=== PATIENT | male | born 1955 | race Caucasian/White ===

== ENCOUNTER 2017-06-16 12:45 | Emergency (ER) | payer OTHER ==
[2017-06-16 12:48] VITALS: BP 145/89; BMI 35.9
[2017-06-16] MEDS ORDERED: LR 1000 ML IV 1,000 ML IV ONE ×2 (12:55→13:09)
[2017-06-16] MEDS ORDERED: MORPHINE SULFATE INJ 2 MG INJ IVP ONE ×2 (12:55→13:27)
[2017-06-16] MEDS ORDERED: ZOFRAN INJ 4 MG VIAL IVP ONE (12:55)
--- NOTE | 2017-06-16 12:55 | DR.ABDMALE ---
HPI - Time seen Time seen: 12:50 - PCP Primary Care Physician: ZEESHAN - HPI comment HPI Comment: Patient admits to nausea and vomiting onset yesterday got worse today. Abdominal pain LLQ somewhat xiphoid. The emesis was bile tinged. Denies history of cardiopulmonary disease. Admits to DM and HTN. - Complaint Chief Complaint:: PT. C/O SEVERE ABDOMINAL PAIN WHICH BEGAN YESTERDAY AND WORSENED. PT. ALSO C/O N/V. PT. HAS VOMITED 3 TIMES SINCE ONSET. PT. SAYS RIDING IN A CAR MAKES THE PAIN WORSE. - Mode of arrival Mode of Arrival: Wheelchair - Timing Onset of Chief Complaint: 06/15/17 PMH - PMH Past Medical History: Yes Past Medical History: Diabetes, Hypertension Past Surgical History: Yes Surgical History: Other Past Surgical History Comment: NASAL SEPTAL DEVIATION, CLEFT PALATE - Family History History of Family Medical Conditions: No - Social History Does patient currently use any type of tobacco product: No Have you used tobacco products in the last 12 months: No Type of Tobacco Use: None Alcohol Use: None Do you use any recreational Drugs:: No Lives With: Spouse Lives Where: Home - infectious screening In the last 2 months have you had wt loss of >10#?: NO Have you had fever, night sweats or hemotysis?: No Have you traveled outside the country in the last 6 months?: No Isolation: Standard ROS - Review of Systems Eyes: No Symptoms Reported ENTM: No Symptoms Reported Respiratoy: No Symptoms Reported Cardiovascular: No Symptoms Reported Gastrointestinal/Abdominal: See HPI, Abdominal Pain, Nausea, Vomiting Genitourinary: No Symptoms Reported Neurological: No Symptoms Reported Musculoskeletal: No Symptoms Reported Integumentary: No Symptoms Reported Hematologic/Lymphatic: No Symptoms Reported Endocrine: No Symptoms Reported Psychiatric: No Symptoms Reported All Other Systems: Reviewed and Negative PE - Vital Signs Vital Signs: Temp Pulse Resp BP Pulse Ox 06/16/17 12:46 97.1 F L 83 22 145/89 98 - General Limitations: No Limitations General Appearance: Alert, Anxious - Head Head Exam: Normal Inspection, Atraumatic - Eyes Eye exam: Normal Appearance, PERRL, EOMI - ENT ENT Exam: Normal Exam - Neck Neck Exam: Normal Inspection, Full ROM - Chest Chest Inspection: Normal Inspection, Symmetric Chest Wall Rise - Respiratory Respiratory Exam: Normal Lung Sounds Bilat Respiratory Exam: Bilateral Clear to Auscultation - Cardiovascular Cardiovascular Exam: Regular Rate, Normal Rhythm - Abdominal Exam Abdominal Exam: Normal Inspection Abdominal Tenderness: LUQ, Epigastrium, Severe - Rectal Rectal Exam: Deferred - Back Back Exam: Normal Inspection - Extremeties Extremities Exam: Normal Inspection, Full ROM - Exam: Male: Deferred - Neurologic Neurological Exam: Alert, Oriented X3, CN II-XII Intact - Psychiatric Psychiatric Exam: Anxious - Skin Skin Exam: Warm, Dry, Intact Course - Reevaluation 1st: Improved ROR - Labs Reviewed Laboratory Results Reviewed?: Yes (H Pylori) Result Diagrams: 06/16/17 13:00 06/16/17 13:00 Laboratory: WBC 8.6 X10^3/uL (3.6-10.0) 06/16/17 13:00 RBC 5.22 X10^6/uL (4.7-6.0) 06/16/17 13:00 Hgb 15.3 g/dL (13.5-18.0) 06/16/17 13:00 Hct 42.8 % (42.0-54.0) 06/16/17 13:00 MCV 82.0 fL (80.0-100.0) 06/16/17 13:00 MCH 29.3 pg (27.0-34.0) 06/16/17 13:00 MCHC 35.7 g/dL (33.0-35.0) H 06/16/17 13:00 RDW 13.3 % (11.6-16.5) 06/16/17 13:00 Plt Count 251 X10^3/uL (150.0-450.0) 06/16/17 13:00 MPV 6.8 fL (7.4-11.0) L 06/16/17 13:00 Neut % (Auto) 73.2 % (42.0-75.0) 06/16/17 13:00 Lymph % (Auto) 18.8 % (21.0-51.0) L 06/16/17 13:00 [place] % (Auto) 5.9 % (0.0-13.0) 06/16/17 13:00 Eos % (Auto) 1.5 % (0.9-2.9) 06/16/17 13:00 Baso % (Auto) 0.6 % (0.2-1.0) 06/16/17 13:00 Neut # (Auto) 6.3 x10^3/uL (2.2-4.8) H 06/16/17 13:00 Lymph # (Auto) 1.6 X10^3/uL (1.3-2.9) 06/16/17 13:00 [place] # (Auto) 0.5 x10^3/uL (0.3-0.8) 06/16/17 13:00 Eos # (Auto) 0.1 x10^3/uL (0.0-0.2) 06/16/17 13:00 Baso # (Auto) 0.1 X10^3/uL (0.0-0.1) 06/16/17 13:00 Absolute Nucleated RBC 0.0 /100WBC 06/16/17 13:00 Sodium 134 mmol/L (136-145) L 06/16/17 13:00 Corrected Sodium 138 mmol/L (136-145) 06/16/17 13:00 Potassium 4.2 mmol/L (3.5-5.1) 06/16/17 13:00 Chloride 99 mmol/L (98-107) 06/16/17 13:00 Carbon Dioxide 23.9 mmol/L (21-32) 06/16/17 13:00 BUN 15 mg/dL (7-18) 06/16/17 13:00 Creatinine 0.94 mg/dL (0.70-1.30) 06/16/17 13:00 Est GFR (MDRD) Af Amer > 60 (>60) 06/16/17 13:00 Est GFR (MDRD) Non-Af > 60 (>60) 06/16/17 13:00 Glucose 246 mg/dL (65-99) H 06/16/17 13:00 Calcium 9.1 mg/dL (8.5-10.1) 06/16/17 13:00 Corrected Calcium TNP 06/16/17 13:00 Total Bilirubin 0.50 mg/dL (0.2-1.0) 06/16/17 13:00 AST 14 Units/L (15-37) L 06/16/17 13:00 ALT 30 Units/L (12-78) 06/16/17 13:00 Alkaline Phosphatase 69 Units/L (46-116) 06/16/17 13:00 C-Reactive Protein 3.50 mg/L (0-3.0) H 06/16/17 13:00 Total Protein 8.3 g/dL (6.4-8.2) H 06/16/17 13:00 Albumin 3.8 g/dL (3.4-5.0) 06/16/17 13:00 Globulin 4.5 g/dL (2.5-4.5) 06/16/17 13:00 Albumin/Globulin Ratio 0.8 Ratio (1.1-2.1) L 06/16/17 13:00 Amylase 83 Units/L (25-115) 06/16/17 13:00 Lipase 203 Units/L (73-393) 06/16/17 13:00 H. pylori IgG Antibody Positive (NEGATIVE) A 06/16/17 13:00 - XRAY XRAY Interpreted by: Radiologist (Acute Abdomen Series: minimal subsegmental atelectasis is present in the left lung base. Otherwise the lungs are clear. The heart size is normal. Prior cervical spine surgery been performed. The abdomen reveals scattered large small bowel gas. A small to moderate amout of stool is noted in the asending colon. I see no evidence of bowel obstruction or penumoperitoneum. No acute bony abnormalities are identified. Impression: minimal subsegmental atelectasis in the left heriberto base, no evidence of bowel obstruction or pneumoperitoneum.) - Diagnosis Discharge Problem: Helicobacter pylori gastritis - Discharge Plan Condition: Stable - Follow ups/Referrals Follow ups/Referrals: YULISSA BYERS [Primary Care Provider] - 3 days - Instructions
[2017-06-16] MEDS ORDERED: NS 1000 ML 1,000 ML ONE (13:00)
[2017-06-16] MEDS ORDERED: MORPHINE SULFATE INJ 2 MG INJ ONE ×2 (13:01→13:27)
[2017-06-16] MEDS ORDERED: ZOFRAN INJ 4 MG VIAL ONE (13:01)
[2017-06-16 13:27] LABS: BASOPHILS # (AUTO) 0.1 X10^3/uL (0.0-0.1); BASOPHILS % (AUTO) 0.6 % (0.2-1.0); EOSINOPHILS # (AUTO) 0.1 x10^3/uL (0.0-0.2); EOSINOPHILS % (AUTO) 1.5 % (0.9-2.9); HEMATOCRIT 42.8 % (42.0-54.0); HEMOGLOBIN 15.3 g/dL (13.5-18.0); LYMPHOCYTES # (AUTO) 1.6 X10^3/uL (1.3-2.9); LYMPHOCYTES % (AUTO) 18.8 % (21.0-51.0); MEAN CORPUSCULAR HEMOGLOBIN 29.3 pg (27.0-34.0); MEAN CORPUSCULAR HGB CONC 35.7 g/dL (33.0-35.0); MEAN PLATELET VOLUME 6.8 fL (7.4-11.0); MONOCYTES # (AUTO) 0.5 x10^3/uL (0.3-0.8); MONOCYTES % (AUTO) 5.9 % (0.0-13.0); NEUTROPHILS # (AUTO) 6.3 x10^3/uL (2.2-4.8); NEUTROPHILS % (AUTO) 73.2 % (42.0-75.0); PLATELET COUNT 251 X10^3/uL (150.0-450.0); RED BLOOD COUNT 5.22 X10^6/uL (4.7-6.0); RED CELL DISTRIBUTION WIDTH 13.3 % (11.6-16.5); WHITE BLOOD COUNT 8.6 X10^3/uL (3.6-10.0)
[2017-06-16 13:34] LABS: ALANINE AMINOTRANSFERASE 30 Units/L (12-78); ALBUMIN 3.8 g/dL (3.4-5.0); ALKALINE PHOSPHATASE 69 Units/L (46-116); AMYLASE 83 Units/L (25-115); ASPARTATE AMINO TRANSFERASE 14 Units/L (15-37); BLOOD UREA NITROGEN 15 mg/dL (7-18); CALCIUM 9.1 mg/dL (8.5-10.1); CARBON DIOXIDE 23.9 mmol/L (21-32); CHLORIDE 99 mmol/L (98-107); COR NA(FOR HYPERGLY) 138 mmol/L (136-145); CREATININE 0.94 mg/dL (0.70-1.30); LIPASE 203 Units/L (73-393); SODIUM 134 mmol/L (136-145); TOTAL PROTEIN 8.3 g/dL (6.4-8.2); eGFR BLACK RACES > 60 (>60); eGFR NON BLACK RACES > 60 (>60)
--- NOTE | 2017-06-16 13:35 | RAD ---
HISTORY: Severe abdominal pain. Study: Upright PA chest with supine and upright abdominal views Comparison: None Findings: Minimal subsegmental atelectasis is present in the left lung base. Otherwise the lungs are clear. T he heart size is normal. Prior cervical spine surgery been performed. Examination of the abdomen reveals scattered large small bowel gas. A small to moderate amount of st ool is noted in the ascending colon. I see no evidence of bowel obstruction or pneumoperitoneum. No acute bony abnormalities are identified. IMPRESSION: 1. Minimal subsegmental atelectasis in the left lung base. 2. No evidence of bowel obstruction or pneumoperitoneum. Reported By:
[2017-06-16] MEDS ORDERED: PROTONIX INJ 40 MG VIAL IVP ONE (13:44)
[2017-06-16] MEDS ORDERED: PROTONIX INJ 40 MG VIAL ONE (13:47)
[2017-06-16] MEDS ORDERED: PHENERGAN INJ 25 MG IV ONE (14:03)
[2017-06-16] MEDS ORDERED: PHENERGAN INJ 25 MG ONE (14:11)
== END 2017-06-16 14:44 | disposition home or self-care (01) ==
LOC: ER 12:53
DX: R10.12 Left upper quadrant pain (principal); B96.81 Helicobacter pylori [H. pylori] as the cause of diseases classified elsewhere
CPT/HCPCS: 36415; 74022; 80053; 82150; 83690; 85025; 86140; 86677; 96365; 96374; 96375; 99283; A4222; C9113; J2270; J2405; J2550; J7120

== ENCOUNTER 2018-12-29 04:20 | Inpatient (IN) ==
[2018-12-29] MEDS ORDERED: TORADOL 30 MG VIAL IVP ONE (04:59)
[2018-12-29] MEDS ORDERED: NS 1000 ML 1,000 ML IV ONE (04:59)
[2018-12-29 05:00] LABS: BILIRUBIN,URINE NEGATIVE (NEGATIVE); BLOOD/HEMOGLOBIN,URINE NEGATIVE (NEGATIVE); GLUCOSE, URINE NEGATIVE (NEGATIVE); KETONES,URINE 3+ (NEGATIVE); LEUKOCYTE ESTERASE ,URINE NEGATIVE (NEGATIVE); NITRITES,URINE NEGATIVE (NEGATIVE); PROTEIN,URINE 2+ (NEGATIVE); UROBILINOGEN,URINE NORMAL (NORMAL)
[2018-12-29 05:05] LABS: APPEARANCE,URINE CLEAR (CLEAR); COLOR,URINE YELLOW (YELLOW)
[2018-12-29 05:06] LABS: BACTERIA,URINE NEGATIVE /HPF (NEGATIVE); RBC,URINE NONE SEEN /HPF (0-3); SQUAMOUS EPITHELIAL CELL,UR NEGATIVE /HPF (NEGATIVE)
[2018-12-29] MEDS ORDERED: TORADOL 30 MG VIAL ONE ×2 (05:09→14:23)
[2018-12-29] MEDS ORDERED: NS 1000 ML 1,000 ML ONE ×3 (05:09→13:53)
--- NOTE | 2018-12-29 05:09 | DR.ABDMALE ---
HPI Time seen Time Seen by Provider: 12/29/18 04:57 PCP Primary Care Physician: YULISSA BYERS Complaint Chief Complaint Doctors Comments: A 63 y/o male presents with diffuse abdominal pain onset since 12/23/18.There is no radiation of the pain and it is mostly constant in presence. He has had associated fever. He was evaluated by his PCP on 12/26/18 and placed empirically on Cipro. He denies recent travel outside of this area or of consuming poorly prepared meals. Chief Complaint:: " THIS STARTED LADT WEDNESDAY NIGHT I WENT OUT TO [place] WEDNESDAY MORNING STARTED HAVING PAIN IN STOMACH, WEDNESDAY STARTED RUN A LOW GRADE FEVER. WENT TO DR WEDNESDAY HE PUT ME ON CIPRO. BEEN ON A LIQUID DIET SINCE WEDNESDAY. PAIN IS MY STOMACH DOWN INTO MY GROIN AREA ONLY THING THAT RELIEVES PAIN IS A HOT SHOWER. PAIN JUST SEEMS TO KEEP GETTING WORST." Self Treatment fo Chief Complaint: CIPRO Reviewed Nurses Notes Review: Yes Mode of arrival Mode of Arrival: Ambulatory Timing Onset of Chief Complaint: 12/23/18 Came on: Gradually Duration How lon Duration: Days Location Location: Diffuse Severity Severity: Moderate Quality Quality: Cramping and Sharp Context Onset: Gradually Modifying factors Worsening Factors: Nothing Improving Factors: Nothing Associated signs and symptoms Associated Signs and Symptoms: Nausea and Diarrhea PMH PMH Past Medical History: Yes Past Medical History: Diabetes and Hypertension Past Surgical History: Yes Surgical History: Ortho Surgery Family History History of Family Medical Conditions: No Social History Alcohol Use: None Do you use any recreational Drugs:: No infectious screening Have you traveled outside the country in the last 6 months?: No Isolation: Standard ROS Review of Systems Constitutional: Fever Eyes: No Symptoms Reported ENTM: No Symptoms Reported Respiratoy: No Symptoms Reported Cardiovascular: No Symptoms Reported Gastrointestinal/Abdominal: Abdominal Pain, Diarrhea and Nausea Genitourinary: No Symptoms Reported Neurological: No Symptoms Reported Musculoskeletal: No Symptoms Reported Integumentary: No Symptoms Reported Hematologic/Lymphatic: No Symptoms Reported Endocrine: No Symptoms Reported Psychiatric: No Symptoms Reported PE Vital Signs Vital Signs: Temp Pulse Resp BP Pulse Ox 12/29/18 07:56 20 12/29/18 05:31 20 12/29/18 04:25 98.3 F 87 18 122/74 97 06/16/17 12:46 145/89 General Limitations: No Limitations General Appearance: Alert, In No Apparent Distress and Obese Head Head Exam: Normal Inspection, Atraumatic and Normocephalic Eyes Eye exam: Normal Appearance, PERRL and EOMI ENT ENT Exam: Normal Exam, Normal Oropharynx, Normal External Ear Exam and Mucous Membranes Moist Neck Neck Exam: Normal Inspection, Full ROM and Trachea Midline Chest Chest Inspection: Normal Inspection and Symmetric Chest Wall Rise Respiratory Respiratory Exam: Normal Lung Sounds Bilat; negative Accessory Muscle Use, Chest Wall Tenderness, Prolonged Expiratory Phase, Respiratory Distress and Stridor Cardiovascular Cardiovascular Exam: Regular Rate, Normal Rhythm, Normal Heart Sounds, +S1 and +S2 Abdominal Exam Abdominal Exam: Normal Inspection, Normal Bowel Sounds, Soft and Tenderness; negative Distention, Guarding, Rebound, Rigidity, Dimnished Bowel Sounds, Hyperactive Bowel Sounds, Hypoactive Bowel Sounds, Organomegaly, Trauma, Incision, Ascites, Mass, Bruit, Pulsatile Mass and Hernia Abdominal Tenderness: Diffuse Rectal Rectal Exam: Deferred Back Back Exam: Normal Inspection and Full ROM Extremeties Extremities Exam: Normal Inspection and Full ROM Exam: Male: Deferred Neurologic Neurological Exam: Alert and Oriented X3 Psychiatric Psychiatric Exam: Normal Affect and Normal Mood Skin Skin Exam: Intact and Normal Color MDM Differential Diagnosis Differential Diagnosis: Diverticular disease, Inflammatory BD and Pancreatitis COURSE Reevaluation 1st: Improved Education/Counseling Education/Counseling: Patient, Family, Education and Counseling Educated On: Treatment, Diagnosis, Prognosis and Needs for Follow Up ROR Labs Reviewed Laboratory Results Reviewed?: Yes Result Diagrams: 12/29/18 05:10 12/29/18 05:10 Laboratory: WBC 9.3 X10^3/uL (3.6-10.0) 12/29/18 05:10 RBC 5.32 X10^6/uL (4.7-6.0) 12/29/18 05:10 Hgb 15.6 g/dL (13.5-18.0) 12/29/18 05:10 Hct 44.0 % (42.0-54.0) 12/29/18 05:10 MCV 82.8 fL (80.0-100.0) 12/29/18 05:10 MCH 29.4 pg (27.0-34.0) 12/29/18 05:10 MCHC 35.5 g/dL (33.0-35.0) H 12/29/18 05:10 RDW 13.1 % (11.6-16.5) 12/29/18 05:10 Plt Count 247 X10^3/uL (150.0-450.0) 12/29/18 05:10 MPV 6.3 fL (7.4-11.0) L 12/29/18 05:10 Neut % (Auto) 68.0 % (42.0-75.0) 12/29/18 05:10 Lymph % (Auto) 19.6 % (21.0-51.0) L 12/29/18 05:10 [place] % (Auto) 10.3 % (0.0-13.0) 12/29/18 05:10 Eos % (Auto) 1.7 % (0.9-2.9) 12/29/18 05:10 Baso % (Auto) 0.4 % (0.2-1.0) 12/29/18 05:10 Neut # (Auto) 6.3 x10^3/uL (2.2-4.8) H 12/29/18 05:10 Lymph # (Auto) 1.8 X10^3/uL (1.3-2.9) 12/29/18 05:10 [place] # (Auto) 1.0 x10^3/uL (0.3-0.8) H 12/29/18 05:10 Eos # (Auto) 0.2 x10^3/uL (0.0-0.2) 12/29/18 05:10 Baso # (Auto) 0.0 X10^3/uL (0.0-0.1) 12/29/18 05:10 Absolute Nucleated RBC 0.1 /100WBC 12/29/18 05:10 Sodium 131 mmol/L (136-145) L 12/29/18 05:10 Corrected Sodium 132 mmol/L (136-145) L 12/29/18 05:10 Potassium 4.0 mmol/L (3.5-5.1) 12/29/18 05:10 Chloride 93 mmol/L (98-107) L 12/29/18 05:10 Carbon Dioxide 24.9 mmol/L (21-32) 12/29/18 05:10 BUN 15 mg/dL (7-18) 12/29/18 05:10 Creatinine 1.13 mg/dL (0.70-1.30) 12/29/18 05:10 Est GFR (MDRD) Af Amer > 60 (>60) 12/29/18 05:10 Est GFR (MDRD) Non-Af > 60 (>60) 12/29/18 05:10 Glucose 137 mg/dL (65-99) H 12/29/18 05:10 Calcium 8.8 mg/dL (8.5-10.1) 12/29/18 05:10 Corrected Calcium 9.4 mg/dL (8.5-10.1) 12/29/18 05:10 Total Bilirubin 1.00 mg/dL (0.2-1.0) 12/29/18 05:10 AST 13 Units/L (15-37) L 12/29/18 05:10 ALT 15 Units/L (12-78) 12/29/18 05:10 Alkaline Phosphatase 75 Units/L (46-116) 12/29/18 05:10 Total Protein 8.1 g/dL (6.4-8.2) 12/29/18 05:10 Albumin 3.2 g/dL (3.4-5.0) L 12/29/18 05:10 Globulin 4.9 g/dL (2.5-4.5) H 12/29/18 05:10 Albumin/Globulin Ratio 0.7 Ratio (1.1-2.1) L 12/29/18 05:10 Amylase 38 Units/L (25-115) 12/29/18 05:10 Lipase 75 Units/L (73-393) 12/29/18 05:10 Specimen Type Clean catch urine 12/29/18 04:55 Urine Color Yellow (YELLOW) 12/29/18 04:55 Urine Appearance Clear (CLEAR) 12/29/18 04:55 Urine pH 5.0 (5.0 - 8.0) 12/29/18 04:55 Ur Specific [place] 1.020 (1.000-1.030) 12/29/18 04:55 Urine Protein 2+ (NEGATIVE) 12/29/18 04:55 Urine Glucose (UA) Negative (NEGATIVE) 12/29/18 04:55 Urine Ketones 3+ (NEGATIVE) 12/29/18 04:55 Urine Occult Blood Negative (NEGATIVE) 12/29/18 04:55 Urine Nitrite Negative (NEGATIVE) 12/29/18 04:55 Urine Bilirubin Negative (NEGATIVE) 12/29/18 04:55 Urine Urobilinogen Normal (NORMAL) 12/29/18 04:55 Ur Leukocyte Esterase Negative (NEGATIVE) 12/29/18 04:55 Urine RBC None seen /HPF (0-3) 12/29/18 04:55 Urine WBC 0-2 /HPF (0-5) 12/29/18 04:55 Ur Squamous Epith Cells Negative /HPF (NEGATIVE) 12/29/18 04:55 Urine Bacteria Negative /HPF (NEGATIVE) 12/29/18 04:55 Ur Culture Indicated? No/not indicated 12/29/18 04:55 Other Results Comments: CT Scan Abd./Pelvis: Acute appendicitis. Prominent PSA Opioid Opioid Risk Tool Total: 0 Total Score Risk Category: Low Risk Copyright: [employer] LAWS predicting aberrant behaviors Diagnosis Discharge Problem: Hyponatremia, Benign essential HTN Acute appendicitis Qualifiers: Acute appendicitis type: with localized peritonitis Appendicitis gangrene presence: without gangrene Appendicitis perforation presence: without perforation Appendicitis abscess presence: without abscess Qualified Code(s): K35.30 - Acute appendicitis with localized peritonitis, without perforation or gangrene Type 1 diabetes Qualifiers: Diabetes mellitus complication status: without complication Qualified Code(s): E10.9 - Type 1 diabetes mellitus without complications
[2018-12-29 05:19] LABS: BASOPHILS % (AUTO) 0.4 % (0.2-1.0); EOSINOPHILS # (AUTO) 0.2 x10^3/uL (0.0-0.2); EOSINOPHILS % (AUTO) 1.7 % (0.9-2.9); HEMOGLOBIN 15.6 g/dL (13.5-18.0); LYMPHOCYTES # (AUTO) 1.8 X10^3/uL (1.3-2.9); LYMPHOCYTES % (AUTO) 19.6 % (21.0-51.0); MEAN CORPUSCULAR HEMOGLOBIN 29.4 pg (27.0-34.0); MEAN CORPUSCULAR HGB CONC 35.5 g/dL (33.0-35.0); MEAN CORPUSCULAR VOLUME 82.8 fL (80.0-100.0); MEAN PLATELET VOLUME 6.3 fL (7.4-11.0); MONOCYTES % (AUTO) 10.3 % (0.0-13.0); NEUTROPHILS # (AUTO) 6.3 x10^3/uL (2.2-4.8); PLATELET COUNT 247 X10^3/uL (150.0-450.0); RED BLOOD COUNT 5.32 X10^6/uL (4.7-6.0); RED CELL DISTRIBUTION WIDTH 13.1 % (11.6-16.5); WHITE BLOOD COUNT 9.3 X10^3/uL (3.6-10.0)
[2018-12-29 05:24] LABS: BLOOD UREA NITROGEN 15 mg/dL (7-18); CALCIUM 8.8 mg/dL (8.5-10.1); CARBON DIOXIDE 24.9 mmol/L (21-32); CHLORIDE 93 mmol/L (98-107); COR NA(FOR HYPERGLY) 132 mmol/L (136-145); CREATININE 1.13 mg/dL (0.70-1.30); SODIUM 131 mmol/L (136-145); eGFR NON BLACK RACES > 60 (>60)
[2018-12-29 05:51] LABS: ALANINE AMINOTRANSFERASE 15 Units/L (12-78); ALBUMIN 3.2 g/dL (3.4-5.0); ALKALINE PHOSPHATASE 75 Units/L (46-116); AMYLASE 38 Units/L (25-115); ASPARTATE AMINO TRANSFERASE 13 Units/L (15-37); COR CA(FOR HYPOALB) 9.4 mg/dL (8.5-10.1); LIPASE 75 Units/L (73-393); TOTAL PROTEIN 8.1 g/dL (6.4-8.2)
[2018-12-29] MEDS ORDERED: NS 100 ML IV 100 ML IV ONE (07:11)
[2018-12-29] MEDS ORDERED: DILAUDID INJ IVP ONE (07:44)
[2018-12-29] MEDS ORDERED: DILAUDID INJ ONE ×3 (07:46→16:45)
--- NOTE | 2018-12-29 07:47 | CT ---
CT ABDOMEN AND PELVIS WITH ORAL AND IV CONTRAST CLINICAL HISTORY: 63-year-old male with lower abdominal pain and fever. COMPARISON: None. TECHNIQUE: Multiple contiguous axial images were obtained following the administration of 100 mL Omnipaque 350 intravenously and oral contrast. Images were reformatted in the coronal and sagittal planes. Dose reduction techniques including Automated Exposure Control (AEC) and adjustment of mA and kV were utilized. FINDINGS: Multiple subpleural ground-glass nodules scattered throughout the lungs, largest right lower lobe measuring 6 mm (series 4, image 5). No mass, consolidation, effusion or pneumothorax. The inferior imaged heart is normal in size and there is no pericardial effusion. The liver, gallbladder, pancreas, and spleen are within normal limits. The adrenal glands are normal bilaterally. The kidneys perfuse in a normal fashion and the ureters run in an unobstructed course to a well distended urinary bladder. No nephroureterolithiasis or hydroureteronephrosis. Prominent prostate with dystrophic calcifications. Seminal vesicles unremarkable. Significant dilatation with inflamed thick-walled appendix measuring up to 2.4 cm with significant periappendiceal inflammation of the mesentery at the distal tip of the appendix which is oriented at the midline. Associated sympathetic inflammation and edema within the distal 2nd, 3rd and proximal 4th portions of the duodenum. Scattered reactive lymph nodes within the mesentery. The remaining bowel is without obstruction or inflammation and there is no free fluid or free air within the peritoneal cavity. There are no pathologically enlarged lymph nodes in the abdomen or pelvis. The arteriovascular structures are within normal limits. Soft tissues are normal. The osseous structures are intact without fracture or malalignment. IMPRESSION: 1. Dilated, inflamed and thick-walled appendix most consistent with non perforated acute appendicitis. Appendiceal mucocele is not excluded. No evidence of abscess. Surgical consultation required. 2. Associated sympathetic inflammation and wall thickening of the duodenum as above. No obstruction. 3. Prominent prostate with dystrophic calcifications, correlate as an outpatient with PSA. Reported By:
[2018-12-29] MEDS ORDERED: ZOSYN VIAL 3.375 GRAMS 3.375 G in NS 100 ML IV + SPIKE MINIBAG* 100 ML IV ONE (08:47)
[2018-12-29] MEDS ORDERED: FLAGYL IV PREMIX 500 MG BAG 500 MG/100 ML BAG IV ONE ×2 (08:47→08:49)
[2018-12-29] MEDS ORDERED: ZOSYN VIAL 3.375 GRAMS IV ONE (08:50)
[2018-12-29] MEDS ORDERED: NS 100 ML IV + SPIKE MINIBAG* 100 ML IV ONE (08:50)
--- NOTE | 2018-12-29 08:59 | RAD ---
HISTORY: 63-year-old male, preoperative evaluation for appendectomy. Study: Frontal view of the chest. Comparison: None. Findings: ACDF is present. The trachea is midline. The cardiac silhouette is unremarkable. The lungs are clear without focal consolidation, effusion or pneumothorax. Soft tissues are unremarkable. Osseous structures are unremarkable. IMPRESSION: 1. No acute cardiopulmonary disease. Reported By:
[2018-12-29] MEDS ORDERED: NS 1000 ML 1,000 ML IV SCH (09:00)
[2018-12-29] MEDS: D5 1/2 NS 1000 ML 1,000 ML IV SCH ×2 (09:10→17:42)
[2018-12-29] MEDS ORDERED: MORPHINE SULFATE INJ 10 MG ONE (10:11)
[2018-12-29] MEDS ORDERED: DECADRON INJ ONE ×2 (10:11→14:23)
[2018-12-29] MEDS ORDERED: FENTANYL INJ 100 mcg ONE (10:11)
[2018-12-29] MEDS ORDERED: ZEMURON ONE ×2 (10:12→14:23)
[2018-12-29] MEDS ORDERED: MARCAINE 0.5% ONE (14:21)
[2018-12-29] MEDS ORDERED: NORCURON INJ 10 MG VIAL ONE (14:23)
[2018-12-29] MEDS ORDERED: ROBINUL ONE (14:23)
[2018-12-29] MEDS ORDERED: XYLOCAINE 1 % (PLAIN) ONE (14:23)
[2018-12-29] MEDS ORDERED: VERSED ONE (14:23)
[2018-12-29] MEDS ORDERED: NEOSTIGMINE INJ ONE (14:23)
[2018-12-29] MEDS ORDERED: ULTANE GAS IN ONE (14:23)
[2018-12-29] MEDS ORDERED: ZOFRAN INJ 4 MG VIAL ONE (14:23)
[2018-12-29] MEDS ORDERED: DIPRIVAN VIAL ONE (14:23)
[2018-12-29] MEDS ORDERED: MORPHINE SULFATE INJ 2 MG INJ ONE (14:23)
[2018-12-29] MEDS ORDERED: QUELICIN (OR ANECTINE) ONE (14:23)
[2018-12-29] MEDS ORDERED: BACITRACIN VIAL ONE (14:28)
[2018-12-29] MEDS ORDERED: PHENERGAN INJ 25 MG IM PRN (15:13)
[2018-12-29] MEDS ORDERED: REGLAN INJ 10 MG VIAL IVP PRN (15:13)
[2018-12-29] MEDS ORDERED: BENADRYL INJ 50 MG VIAL IVP PRN (15:13)
[2018-12-29] MEDS ORDERED: DILAUDID INJ IVP PRN (15:13)
[2018-12-29] MEDS ORDERED: ZOFRAN INJ 4 MG VIAL IVP PRN (15:13)
[2018-12-29] MEDS ORDERED: DUONEB 0.5 MG/3 MG ONE (15:14)
[2018-12-29 15:19] LABS: BILIRUBIN,URINE NEGATIVE (NEGATIVE); BLOOD/HEMOGLOBIN,URINE NEGATIVE (NEGATIVE); GLUCOSE, URINE 3+ (NEGATIVE); KETONES,URINE 3+ (NEGATIVE); LEUKOCYTE ESTERASE ,URINE NEGATIVE (NEGATIVE); NITRITES,URINE NEGATIVE (NEGATIVE); PROTEIN,URINE 2+ (NEGATIVE); UROBILINOGEN,URINE NORMAL (NORMAL)
[2018-12-29] MEDS ORDERED: DUONEB 0.5 MG/3 MG NEB ONE (15:25)
[2018-12-29 15:35] LABS: AMORPHOUS SEDIMENT,UR 1+ /HPF (NEGATIVE); APPEARANCE,URINE HAZY (CLEAR); BACTERIA,URINE NEGATIVE /HPF (NEGATIVE); COLOR,URINE YELLOW (YELLOW); MUCUS,URINE MODERATE /HPF (NEGATIVE); RBC,URINE 0-2 /HPF (0-3); SQUAMOUS EPITHELIAL CELL,UR MODERATE /HPF (NEGATIVE)
[2018-12-29] MEDS: DILAUDID INJ IVP PRN ×2 (17:01→20:21)
[2018-12-29] MEDS ORDERED: PROTONIX INJ 40 MG VIAL ONE (17:43)
[2018-12-29] MEDS ORDERED: LOSARTAN HYDROCHLOROTHIAZIDE PO SCH (17:46)
[2018-12-29] MEDS ORDERED: ASPIRIN EC 81 MG PO SCH (17:46)
[2018-12-29] MEDS ORDERED: NORVASC TAB 10 MG PO SCH (17:46)
--- NOTE | 2018-12-29 17:53 | OR.IMMED ---
Immediate Post-Op Note - Immediate Post-Op Note Pre-Op Diagnosis: acute appendicitis. Post-Op Diagnosis: mass around the terminal oleum and cecum with extention in the root of mesentary and duodenum . frozen section was not conclosive but suspicious for malignancy . Procedure: diagnostic laparoscopy , exploratory laparotomy . Rt colectomy . grozen section . Surgeon/Conveyor Belt Installer: Tomasa. Specimens Removed: Rt colon . frozen section of mesenteric mass . Estimated Blood Loss: 200cc Drains: Tyler Acevedo Complications: none Condition: Stable
[2018-12-29] MEDS: PROTONIX INJ 40 MG VIAL IVP SCH ×2 (17:56→17:57)
[2018-12-29] MEDS: FLAGYL IV PREMIX 500 MG BAG 500 MG/100 ML BAG IV SCH (19:39)
[2018-12-29] MEDS ORDERED: SNACK - Diabetic Appropriate PO SCH (20:00)
[2018-12-29] MEDS: HumuLIN R SUBCUT PRN (20:29)
[2018-12-29] MEDS: ZOSYN VIAL 3.375 GRAMS 3.375 G in NS 100 ML IV + SPIKE MINIBAG* 100 ML IV SCH (21:33)
[2018-12-29] MEDS ORDERED: FLAGYL TAB 500 MG PO SCH (22:00)
[2018-12-30] MEDS: DILAUDID INJ IVP PRN ×6 (00:26→22:12)
[2018-12-30] MEDS: D5 1/2 NS 1000 ML 1,000 ML IV SCH (01:51)
[2018-12-30] MEDS: HumuLIN R SUBCUT PRN ×4 (01:56→17:55)
[2018-12-30] MEDS: FLAGYL IV PREMIX 500 MG BAG 500 MG/100 ML BAG IV SCH ×3 (04:33→20:16)
[2018-12-30 05:21] LABS: BASOPHILS % (AUTO) 0.1 % (0.2-1.0); HEMATOCRIT 38.2 % (42.0-54.0); LYMPHOCYTES # (AUTO) 0.9 X10^3/uL (1.3-2.9); LYMPHOCYTES % (AUTO) 7.7 % (21.0-51.0); MEAN CORPUSCULAR HEMOGLOBIN 29.5 pg (27.0-34.0); MEAN CORPUSCULAR HGB CONC 35.1 g/dL (33.0-35.0); MEAN CORPUSCULAR VOLUME 84.1 fL (80.0-100.0); MEAN PLATELET VOLUME 6.8 fL (7.4-11.0); MONOCYTES # (AUTO) 1.1 x10^3/uL (0.3-0.8); MONOCYTES % (AUTO) 9.7 % (0.0-13.0); NEUTROPHILS # (AUTO) 9.1 x10^3/uL (2.2-4.8); NEUTROPHILS % (AUTO) 82.5 % (42.0-75.0); PLATELET COUNT 266 X10^3/uL (150.0-450.0); RED BLOOD COUNT 4.54 X10^6/uL (4.7-6.0); RED CELL DISTRIBUTION WIDTH 12.9 % (11.6-16.5); WHITE BLOOD COUNT 11.1 X10^3/uL (3.6-10.0)
[2018-12-30] MEDS: ZOSYN VIAL 3.375 GRAMS 3.375 G in NS 100 ML IV + SPIKE MINIBAG* 100 ML IV SCH ×3 (05:25→22:12)
[2018-12-30 05:33] LABS: ALANINE AMINOTRANSFERASE 17 Units/L (12-78); ALBUMIN 2.6 g/dL (3.4-5.0); ALKALINE PHOSPHATASE 61 Units/L (46-116); ASPARTATE AMINO TRANSFERASE 15 Units/L (15-37); BLOOD UREA NITROGEN 15 mg/dL (7-18); CARBON DIOXIDE 22.1 mmol/L (21-32); CHLORIDE 98 mmol/L (98-107); COR CA(FOR HYPOALB) 9.1 mg/dL (8.5-10.1); COR NA(FOR HYPERGLY) 134 mmol/L (136-145); CREATININE 1.12 mg/dL (0.70-1.30); SODIUM 130 mmol/L (136-145); TOTAL PROTEIN 6.9 g/dL (6.4-8.2); eGFR NON BLACK RACES > 60 (>60)
[2018-12-30 06:09] LABS: HEMOGLOBIN 13.4 g/dL (13.5-18.0)
[2018-12-30] MEDS ORDERED: VASOTEC INJ 2.5 MG VIAL IVP PRN (09:29)
[2018-12-30] MEDS: LOVENOX INJ 40 MG SYR SC SCH (09:30)
[2018-12-30] MEDS: NS 1000 ML 1,000 ML IV SCH ×2 (09:54→18:24)
[2018-12-30 12:08] VITALS: BMI 33.8
--- NOTE | 2018-12-30 14:30 | DR.PROGNOT ---
Hospital Progress Notes - Progress Note for Day of: Progress Note Date: 12/30/18 - Chief Complaint Chief Complaint: PO day 1 . s/p Rt colectomy for mass arouind the appendix and cecum . final pathology report is not available yet . pt is doing fairly well . good urine out put . - Past Medical Family Social History Past Med/Fam/Surg Hx: No changes since H&P Allergies: Allergies Sulfa (Sulfonamide Antibiotics) [SULFA] Allergy (Verified 06/16/17 12:48) - Review Of Systems ROS: No change since H&P - Vital Signs Vital Signs: Temperature 98.1 F Pulse Rate [Apical] 93 Pulse Rate 88 Respiratory Rate 18 Blood Pressure [Left Arm] 142/70 Blood Pressure 152/70 O2 Sat by Pulse Oximetry 98 - Physical Exam Oriented: Normal Eyes: Normal Ear: Normal Nose: Normal Throat: Normal Respiratory: Normal : Normal, Other (has funez cath in place .) GI:Palpation: Normal GI: Tenderness: Diffuse (moderate incisional pain , BS + but hypoactive ..) Mood Description: Calm, Appropriate Speech Pattern: Clear, Appropriate - Laboratory and Diagnostics Result Diagrams: 12/30/18 04:39 12/30/18 04:39 Labs: Laboratory WBC 11.1 X10^3/uL (3.6-10.0) H 12/30/18 04:39 RBC 4.54 X10^6/uL (4.7-6.0) L 12/30/18 04:39 Hgb 13.4 g/dL (13.5-18.0) L D 12/30/18 04:39 Hct 38.2 % (42.0-54.0) L 12/30/18 04:39 MCV 84.1 fL (80.0-100.0) 12/30/18 04:39 MCH 29.5 pg (27.0-34.0) 12/30/18 04:39 MCHC 35.1 g/dL (33.0-35.0) H 12/30/18 04:39 RDW 12.9 % (11.6-16.5) 12/30/18 04:39 Plt Count 266 X10^3/uL (150.0-450.0) 12/30/18 04:39 MPV 6.8 fL (7.4-11.0) L 12/30/18 04:39 Neut % (Auto) 82.5 % (42.0-75.0) H 12/30/18 04:39 Lymph % (Auto) 7.7 % (21.0-51.0) L 12/30/18 04:39 [place] % (Auto) 9.7 % (0.0-13.0) 12/30/18 04:39 Eos % (Auto) 0.0 % (0.9-2.9) L 12/30/18 04:39 Baso % (Auto) 0.1 % (0.2-1.0) L 12/30/18 04:39 Neut # (Auto) 9.1 x10^3/uL (2.2-4.8) H 12/30/18 04:39 Lymph # (Auto) 0.9 X10^3/uL (1.3-2.9) L 12/30/18 04:39 [place] # (Auto) 1.1 x10^3/uL (0.3-0.8) H 12/30/18 04:39 Eos # (Auto) 0.0 x10^3/uL (0.0-0.2) 12/30/18 04:39 Baso # (Auto) 0.0 X10^3/uL (0.0-0.1) 12/30/18 04:39 Absolute Nucleated RBC 0.0 /100WBC 12/30/18 04:39 Sodium 130 mmol/L (136-145) L 12/30/18 04:39 Corrected Sodium 134 mmol/L (136-145) L 12/30/18 04:39 Potassium 4.4 mmol/L (3.5-5.1) 12/30/18 04:39 Chloride 98 mmol/L (98-107) 12/30/18 04:39 Carbon Dioxide 22.1 mmol/L (21-32) 12/30/18 04:39 BUN 15 mg/dL (7-18) 12/30/18 04:39 Creatinine 1.12 mg/dL (0.70-1.30) 12/30/18 04:39 Est GFR (MDRD) Af Amer > 60 (>60) 12/30/18 04:39 Est GFR (MDRD) Non-Af > 60 (>60) 12/30/18 04:39 Glucose 267 mg/dL (65-99) H 12/30/18 04:39 POC Glucose (mg/dL) 241 mg/dL (65-99) H 12/30/18 10:18 Calcium 8.0 mg/dL (8.5-10.1) L 12/30/18 04:39 Corrected Calcium 9.1 mg/dL (8.5-10.1) 12/30/18 04:39 Total Bilirubin 0.60 mg/dL (0.2-1.0) 12/30/18 04:39 AST 15 Units/L (15-37) 12/30/18 04:39 ALT 17 Units/L (12-78) 12/30/18 04:39 Alkaline Phosphatase 61 Units/L (46-116) 12/30/18 04:39 Total Protein 6.9 g/dL (6.4-8.2) 12/30/18 04:39 Albumin 2.6 g/dL (3.4-5.0) L 12/30/18 04:39 Globulin 4.3 g/dL (2.5-4.5) 12/30/18 04:39 Albumin/Globulin Ratio 0.6 Ratio (1.1-2.1) L 12/30/18 04:39 Amylase 38 Units/L (25-115) 12/29/18 05:10 Lipase 75 Units/L (73-393) 12/29/18 05:10 Specimen Type Catherized urine 12/29/18 14:45 Urine Color Yellow (YELLOW) 12/29/18 14:45 Urine Appearance Hazy (CLEAR) 12/29/18 14:45 Urine pH 5.0 (5.0 - 8.0) 12/29/18 14:45 Ur Specific [place] 1.020 (1.000-1.030) 12/29/18 14:45 Urine Protein 2+ (NEGATIVE) 12/29/18 14:45 Urine Glucose (UA) 3+ (NEGATIVE) 12/29/18 14:45 Urine Ketones 3+ (NEGATIVE) 12/29/18 14:45 Urine Occult Blood Negative (NEGATIVE) 12/29/18 14:45 Urine Nitrite Negative (NEGATIVE) 12/29/18 14:45 Urine Bilirubin Negative (NEGATIVE) 12/29/18 14:45 Urine Urobilinogen Normal (NORMAL) 12/29/18 14:45 Ur Leukocyte Esterase Negative (NEGATIVE) 12/29/18 14:45 Urine RBC 0-2 /HPF (0-3) 12/29/18 14:45 Urine WBC 0-2 /HPF (0-5) 12/29/18 14:45 Ur Squamous Epith Cells Moderate /HPF (NEGATIVE) 12/29/18 14:45 Ur Transition Epith Cell Cancelled 12/29/18 14:45 Ur Renal Epithelial Cell Cancelled 12/29/18 14:45 Calcium Oxalate Crystal Cancelled 12/29/18 14:45 Cystine Crystals Cancelled 12/29/18 14:45 Uric Acid Crystals Cancelled 12/29/18 14:45 Triple Phos Crystals Cancelled 12/29/18 14:45 Tyrosine Crystals Cancelled 12/29/18 14:45 Other Crystals Cancelled 12/29/18 14:45 Amorphous Sediment 1+ /HPF (NEGATIVE) 12/29/18 14:45 Urine Bacteria Negative /HPF (NEGATIVE) 12/29/18 14:45 Hyaline Casts Cancelled 12/29/18 14:45 Granular Casts Cancelled 12/29/18 14:45 Fine Granular Casts Cancelled 12/29/18 14:45 Coarse Granular Casts Cancelled 12/29/18 14:45 RBC Casts Cancelled 12/29/18 14:45 Other Casts Cancelled 12/29/18 14:45 Urine Mucus Moderate /HPF (NEGATIVE) 12/29/18 14:45 Urine Trichomonas Cancelled 12/29/18 14:45 Urine Yeast Cancelled 12/29/18 14:45 Urine Sperm Cancelled 12/29/18 14:45 Ur Culture Indicated? No/not indicated 12/29/18 14:45 Surg PTH Frozen Section To follow 12/29/18 13:12 Pathology Result To follow 12/29/18 13:10 Tissue Pathology Cancelled 12/29/18 13:10 - Assessment and Plan 1: PO Rt colectomy for mass of ileocecal area ( appendix , cecum or. small bowel origin ). DM, HTN . same PO care , DVT prophylaxis , control DM . OOB . d/c NGT . may have only water today .. - Problem Patient Problems: Patient Problems Acute appendicitis (Acute) K35.80 Type 1 diabetes (Acute) E10.9 Hyponatremia (Acute) E87.1 Benign essential HTN (Acute) I10
[2018-12-31] MEDS: DILAUDID INJ IVP PRN ×5 (02:04→19:54)
[2018-12-31] MEDS: NS 1000 ML 1,000 ML IV SCH ×5 (02:48→23:00)
[2018-12-31] MEDS: FLAGYL IV PREMIX 500 MG BAG 500 MG/100 ML BAG IV SCH ×3 (03:52→19:54)
[2018-12-31] MEDS: ZOSYN VIAL 3.375 GRAMS 3.375 G in NS 100 ML IV + SPIKE MINIBAG* 100 ML IV SCH ×3 (05:06→21:43)
[2018-12-31] MEDS: HumuLIN R SUBCUT PRN ×4 (06:00→20:39)
[2018-12-31 06:39] LABS: BASOPHILS % (AUTO) 0.2 % (0.2-1.0); EOSINOPHILS # (AUTO) 0.1 x10^3/uL (0.0-0.2); EOSINOPHILS % (AUTO) 0.7 % (0.9-2.9); HEMOGLOBIN 12.4 g/dL (13.5-18.0); LYMPHOCYTES # (AUTO) 1.7 X10^3/uL (1.3-2.9); LYMPHOCYTES % (AUTO) 16.6 % (21.0-51.0); MEAN CORPUSCULAR HEMOGLOBIN 29.1 pg (27.0-34.0); MEAN CORPUSCULAR HGB CONC 34.3 g/dL (33.0-35.0); MEAN CORPUSCULAR VOLUME 84.8 fL (80.0-100.0); MONOCYTES % (AUTO) 9.5 % (0.0-13.0); NEUTROPHILS # (AUTO) 7.3 x10^3/uL (2.2-4.8); PLATELET COUNT 242 X10^3/uL (150.0-450.0); RED BLOOD COUNT 4.25 X10^6/uL (4.7-6.0); RED CELL DISTRIBUTION WIDTH 12.9 % (11.6-16.5); WHITE BLOOD COUNT 10.1 X10^3/uL (3.6-10.0)
[2018-12-31 06:55] LABS: ALANINE AMINOTRANSFERASE 15 Units/L (12-78); ALBUMIN 2.4 g/dL (3.4-5.0); ALKALINE PHOSPHATASE 55 Units/L (46-116); ASPARTATE AMINO TRANSFERASE 15 Units/L (15-37); BLOOD UREA NITROGEN 9 mg/dL (7-18); CALCIUM 7.9 mg/dL (8.5-10.1); CARBON DIOXIDE 22.1 mmol/L (21-32); CHLORIDE 98 mmol/L (98-107); COR CA(FOR HYPOALB) 9.2 mg/dL (8.5-10.1); COR NA(FOR HYPERGLY) 133 mmol/L (136-145); CREATININE 0.95 mg/dL (0.70-1.30); SODIUM 131 mmol/L (136-145); TOTAL PROTEIN 6.5 g/dL (6.4-8.2); eGFR NON BLACK RACES > 60 (>60)
[2018-12-31] MEDS: LOVENOX INJ 40 MG SYR SC SCH (08:30)
--- NOTE | 2018-12-31 11:37 | PCM.PROG ---
Progress Note Progress Note for Day of Date of Exam: 12/31/18 Subjective Subjective: Patient seen this AM, reports doing well. POD# 2 s/p right colectomy for mass in the ileocecal area. Patient reports pain is well controlled with Dilaudid. He has been drinking water post surgery. He had an episode of nausea yesterday. BP was elevated overnight, did not receive prn Vasotec. BP this AM 152/69. Past Medical Family Social History Past Med/Fam/Surg Hx: No changes since H&P Allergies: Allergies Sulfa (Sulfonamide Antibiotics) [SULFA] Allergy (Verified 06/16/17 12:48) Review of Systems ROS: No change since H&P Vital Signs and I&O's Vital Signs: Temperature 99.0 F Pulse Rate [Apical] 93 Pulse Rate 97 Respiratory Rate 17 Blood Pressure [Left Arm] 142/70 Blood Pressure 153/72 O2 Sat by Pulse Oximetry 93 Intake and Output: Intake & Output 12/28/18 12/29/18 12/30/18 12/31/18 23:59 23:59 23:59 23:59 Intake Total 09112 / 98375 3187 / 3187 855 / 855 Output Total 7590 / 7590 2660 / 2660 420 / 420 Balance 4213 / 4213 527 / 527 435 / 435 Physical Exam Oriented: Normal Eyes: Normal Ear: Normal Nose: Normal Throat: Normal Respiratory: Normal Cardiovascular: Normal : Normal and Other (has funez cath in place .) Auscultation: Bowel Sounds: Normal Tenderness: Diffuse (incission dressed, some dried blood noticed through the dressing. BS+, some tenderness around the site. JENNIFER drain in place, serosanguinous drainage ) Skin: Normal Musculoskeletal: Normal Mood Description: Calm and Appropriate Speech Pattern: Clear and Appropriate Laboratory and Diagnostics Result Diagrams: 12/31/18 05:44 12/31/18 05:44 Labs: Laboratory WBC 10.1 X10^3/uL (3.6-10.0) H 12/31/18 05:44 RBC 4.25 X10^6/uL (4.7-6.0) L 12/31/18 05:44 Hgb 12.4 g/dL (13.5-18.0) L 12/31/18 05:44 Hct 36.0 % (42.0-54.0) L 12/31/18 05:44 MCV 84.8 fL (80.0-100.0) 12/31/18 05:44 MCH 29.1 pg (27.0-34.0) 12/31/18 05:44 MCHC 34.3 g/dL (33.0-35.0) 12/31/18 05:44 RDW 12.9 % (11.6-16.5) 12/31/18 05:44 Plt Count 242 X10^3/uL (150.0-450.0) 12/31/18 05:44 MPV 7.0 fL (7.4-11.0) L 12/31/18 05:44 Neut % (Auto) 73.0 % (42.0-75.0) 12/31/18 05:44 Lymph % (Auto) 16.6 % (21.0-51.0) L 12/31/18 05:44 [place] % (Auto) 9.5 % (0.0-13.0) 12/31/18 05:44 Eos % (Auto) 0.7 % (0.9-2.9) L 12/31/18 05:44 Baso % (Auto) 0.2 % (0.2-1.0) 12/31/18 05:44 Neut # (Auto) 7.3 x10^3/uL (2.2-4.8) H 12/31/18 05:44 Lymph # (Auto) 1.7 X10^3/uL (1.3-2.9) 12/31/18 05:44 [place] # (Auto) 1.0 x10^3/uL (0.3-0.8) H 12/31/18 05:44 Eos # (Auto) 0.1 x10^3/uL (0.0-0.2) 12/31/18 05:44 Baso # (Auto) 0.0 X10^3/uL (0.0-0.1) 12/31/18 05:44 Absolute Nucleated RBC 0.0 /100WBC 12/31/18 05:44 Sodium 131 mmol/L (136-145) L 12/31/18 05:44 Corrected Sodium 133 mmol/L (136-145) L 12/31/18 05:44 Potassium 4.1 mmol/L (3.5-5.1) 12/31/18 05:44 Chloride 98 mmol/L (98-107) 12/31/18 05:44 Carbon Dioxide 22.1 mmol/L (21-32) 12/31/18 05:44 BUN 9 mg/dL (7-18) 12/31/18 05:44 Creatinine 0.95 mg/dL (0.70-1.30) 12/31/18 05:44 Est GFR (MDRD) Af Amer > 60 (>60) 12/31/18 05:44 Est GFR (MDRD) Non-Af > 60 (>60) 12/31/18 05:44 Glucose 190 mg/dL (65-99) H 12/31/18 05:44 POC Glucose (mg/dL) 179 mg/dL (65-99) H 12/31/18 10:59 Calcium 7.9 mg/dL (8.5-10.1) L 12/31/18 05:44 Corrected Calcium 9.2 mg/dL (8.5-10.1) 12/31/18 05:44 Total Bilirubin 0.80 mg/dL (0.2-1.0) 12/31/18 05:44 AST 15 Units/L (15-37) 12/31/18 05:44 ALT 15 Units/L (12-78) 12/31/18 05:44 Alkaline Phosphatase 55 Units/L (46-116) 12/31/18 05:44 Total Protein 6.5 g/dL (6.4-8.2) 12/31/18 05:44 Albumin 2.4 g/dL (3.4-5.0) L 12/31/18 05:44 Globulin 4.1 g/dL (2.5-4.5) 12/31/18 05:44 Albumin/Globulin Ratio 0.6 Ratio (1.1-2.1) L 12/31/18 05:44 Amylase 38 Units/L (25-115) 12/29/18 05:10 Lipase 75 Units/L (73-393) 12/29/18 05:10 Specimen Type Catherized urine 12/29/18 14:45 Urine Color Yellow (YELLOW) 12/29/18 14:45 Urine Appearance Hazy (CLEAR) 12/29/18 14:45 Urine pH 5.0 (5.0 - 8.0) 12/29/18 14:45 Ur Specific [place] 1.020 (1.000-1.030) 12/29/18 14:45 Urine Protein 2+ (NEGATIVE) 12/29/18 14:45 Urine Glucose (UA) 3+ (NEGATIVE) 12/29/18 14:45 Urine Ketones 3+ (NEGATIVE) 12/29/18 14:45 Urine Occult Blood Negative (NEGATIVE) 12/29/18 14:45 Urine Nitrite Negative (NEGATIVE) 12/29/18 14:45 Urine Bilirubin Negative (NEGATIVE) 12/29/18 14:45 Urine Urobilinogen Normal (NORMAL) 12/29/18 14:45 Ur Leukocyte Esterase Negative (NEGATIVE) 12/29/18 14:45 Urine RBC 0-2 /HPF (0-3) 12/29/18 14:45 Urine WBC 0-2 /HPF (0-5) 12/29/18 14:45 Ur Squamous Epith Cells Moderate /HPF (NEGATIVE) 12/29/18 14:45 Ur Transition Epith Cell Cancelled 12/29/18 14:45 Ur Renal Epithelial Cell Cancelled 12/29/18 14:45 Calcium Oxalate Crystal Cancelled 12/29/18 14:45 Cystine Crystals Cancelled 12/29/18 14:45 Uric Acid Crystals Cancelled 12/29/18 14:45 Triple Phos Crystals Cancelled 12/29/18 14:45 Tyrosine Crystals Cancelled 12/29/18 14:45 Other Crystals Cancelled 12/29/18 14:45 Amorphous Sediment 1+ /HPF (NEGATIVE) 12/29/18 14:45 Urine Bacteria Negative /HPF (NEGATIVE) 12/29/18 14:45 Hyaline Casts Cancelled 12/29/18 14:45 Granular Casts Cancelled 12/29/18 14:45 Fine Granular Casts Cancelled 12/29/18 14:45 Coarse Granular Casts Cancelled 12/29/18 14:45 RBC Casts Cancelled 12/29/18 14:45 Other Casts Cancelled 12/29/18 14:45 Urine Mucus Moderate /HPF (NEGATIVE) 12/29/18 14:45 Urine Trichomonas Cancelled 12/29/18 14:45 Urine Yeast Cancelled 12/29/18 14:45 Urine Sperm Cancelled 12/29/18 14:45 Ur Culture Indicated? No/not indicated 12/29/18 14:45 Surg PTH Frozen Section To follow 12/29/18 13:12 Pathology Result To follow 12/29/18 13:10 Tissue Pathology Cancelled 12/29/18 13:10 Plan (1) Hyponatremia: Status: Acute Plan: improving with IVF, continue gentle hydration while not taking PO intake. (2) Colonic mass: Status: Acute Plan: POD 2 s/p right colectomy for mass in the ileocecal area. Final pathology pending. Dr. Au following, continue liquids, ok to have sugar free Powerade. Will follow further recommendations from Dr. Au. Continue Flagyl and Zosyn as per surgery. Continue pain control with Dilaudid (3) Benign essential HTN: Status: Acute Plan: not on home medications due to being NPO. Vasotec PRN if SBP > 160. (4) Type 1 diabetes: Status: Acute Qualifiers: Diabetes mellitus complication status: without complication Qualified Code(s): E10.9 - Type 1 diabetes mellitus without complications Plan: on SSI, required 14 units yesterday.
[2019-01-01] MEDS: DILAUDID INJ IVP PRN ×5 (00:10→19:38)
[2019-01-01] MEDS: FLAGYL IV PREMIX 500 MG BAG 500 MG/100 ML BAG IV SCH ×3 (04:00→19:39)
[2019-01-01] MEDS: NS 1000 ML 1,000 ML IV SCH ×4 (04:37→20:53)
[2019-01-01] MEDS: ZOSYN VIAL 3.375 GRAMS 3.375 G in NS 100 ML IV + SPIKE MINIBAG* 100 ML IV SCH ×3 (06:00→21:55)
[2019-01-01 06:35] LABS: BASOPHILS % (AUTO) 0.3 % (0.2-1.0); EOSINOPHILS # (AUTO) 0.1 x10^3/uL (0.0-0.2); EOSINOPHILS % (AUTO) 1.4 % (0.9-2.9); HEMATOCRIT 33.3 % (42.0-54.0); HEMOGLOBIN 11.4 g/dL (13.5-18.0); LYMPHOCYTES # (AUTO) 0.9 X10^3/uL (1.3-2.9); LYMPHOCYTES % (AUTO) 13.4 % (21.0-51.0); MEAN CORPUSCULAR HEMOGLOBIN 28.9 pg (27.0-34.0); MEAN CORPUSCULAR HGB CONC 34.1 g/dL (33.0-35.0); MEAN CORPUSCULAR VOLUME 84.9 fL (80.0-100.0); MEAN PLATELET VOLUME 6.9 fL (7.4-11.0); MONOCYTES # (AUTO) 0.6 x10^3/uL (0.3-0.8); MONOCYTES % (AUTO) 8.9 % (0.0-13.0); NEUTROPHILS # (AUTO) 5.1 x10^3/uL (2.2-4.8); PLATELET COUNT 233 X10^3/uL (150.0-450.0); RED BLOOD COUNT 3.93 X10^6/uL (4.7-6.0); WHITE BLOOD COUNT 6.7 X10^3/uL (3.6-10.0)
[2019-01-01] MEDS: HumuLIN R SUBCUT PRN (06:37)
[2019-01-01 06:49] LABS: ALANINE AMINOTRANSFERASE 14 Units/L (12-78); ALBUMIN 2.2 g/dL (3.4-5.0); ALKALINE PHOSPHATASE 55 Units/L (46-116); ASPARTATE AMINO TRANSFERASE 14 Units/L (15-37); BLOOD UREA NITROGEN 8 mg/dL (7-18); CARBON DIOXIDE 23.2 mmol/L (21-32); CHLORIDE 99 mmol/L (98-107); COR CA(FOR HYPOALB) 9.4 mg/dL (8.5-10.1); COR NA(FOR HYPERGLY) 134 mmol/L (136-145); SODIUM 132 mmol/L (136-145); TOTAL PROTEIN 6.2 g/dL (6.4-8.2); eGFR NON BLACK RACES > 60 (>60)
[2019-01-01] MEDS: LOVENOX INJ 40 MG SYR SC SCH (09:03)
--- NOTE | 2019-01-01 10:42 | PCM.PROG ---
Progress Note Progress Note for Day of Date of Exam: 01/01/19 Subjective Subjective: Patient reports doing well, ambulating in the hallway. Pain is well controlled. He has been passing flatus. No BM. His BP is better, received one dose of Vasotec yesterday. He has been on water and ice chips, he had some nausea yesterday. He reports not feeling hungry. Past Medical Family Social History Past Med/Fam/Surg Hx: No changes since H&P Allergies: Allergies Sulfa (Sulfonamide Antibiotics) [SULFA] Allergy (Verified 06/16/17 12:48) Review of Systems ROS: No change since H&P Vital Signs and I&O's Vital Signs: Temperature 98.4 F Pulse Rate [Apical] 93 Pulse Rate 90 Respiratory Rate 20 Blood Pressure [Left Arm] 142/70 Blood Pressure 177/79 O2 Sat by Pulse Oximetry 96 Intake and Output: Intake & Output 12/29/18 12/30/18 12/31/18 01/01/19 23:59 23:59 23:59 23:59 Intake Total 15976 / 58815 3187 / 3187 3412 / 3412 902 / 902 Output Total 7590 / 7590 2660 / 2660 1465 / 1465 958 / 958 Balance 4213 / 4213 527 / 527 1947 / 1947 -56 / -56 Physical Exam Oriented: Normal Eyes: Normal Ear: Normal Nose: Normal Throat: Normal Respiratory: Normal Cardiovascular: Normal : Normal and Other (has funez cath in place .) Auscultation: Bowel Sounds: Normal Tenderness: Diffuse (incission dressed, some dried blood noticed through the dressing. BS+, some tenderness around the site. JENNIFER drain in place, serosanguinous drainage ) and Epigastric Skin: Normal Musculoskeletal: Normal Mood Description: Calm and Appropriate Speech Pattern: Clear and Appropriate Laboratory and Diagnostics Result Diagrams: 01/01/19 05:44 01/01/19 05:44 Labs: Laboratory WBC 6.7 X10^3/uL (3.6-10.0) 01/01/19 05:44 RBC 3.93 X10^6/uL (4.7-6.0) L 01/01/19 05:44 Hgb 11.4 g/dL (13.5-18.0) L 01/01/19 05:44 Hct 33.3 % (42.0-54.0) L 01/01/19 05:44 MCV 84.9 fL (80.0-100.0) 01/01/19 05:44 MCH 28.9 pg (27.0-34.0) 01/01/19 05:44 MCHC 34.1 g/dL (33.0-35.0) 01/01/19 05:44 RDW 13.0 % (11.6-16.5) 01/01/19 05:44 Plt Count 233 X10^3/uL (150.0-450.0) 01/01/19 05:44 MPV 6.9 fL (7.4-11.0) L 01/01/19 05:44 Neut % (Auto) 76.0 % (42.0-75.0) H 01/01/19 05:44 Lymph % (Auto) 13.4 % (21.0-51.0) L 01/01/19 05:44 [place] % (Auto) 8.9 % (0.0-13.0) 01/01/19 05:44 Eos % (Auto) 1.4 % (0.9-2.9) 01/01/19 05:44 Baso % (Auto) 0.3 % (0.2-1.0) 01/01/19 05:44 Neut # (Auto) 5.1 x10^3/uL (2.2-4.8) H 01/01/19 05:44 Lymph # (Auto) 0.9 X10^3/uL (1.3-2.9) L 01/01/19 05:44 [place] # (Auto) 0.6 x10^3/uL (0.3-0.8) 01/01/19 05:44 Eos # (Auto) 0.1 x10^3/uL (0.0-0.2) 01/01/19 05:44 Baso # (Auto) 0.0 X10^3/uL (0.0-0.1) 01/01/19 05:44 Absolute Nucleated RBC 0.0 /100WBC 01/01/19 05:44 Sodium 132 mmol/L (136-145) L 01/01/19 05:44 Corrected Sodium 134 mmol/L (136-145) L 01/01/19 05:44 Potassium 3.9 mmol/L (3.5-5.1) 01/01/19 05:44 Chloride 99 mmol/L (98-107) 01/01/19 05:44 Carbon Dioxide 23.2 mmol/L (21-32) 01/01/19 05:44 BUN 8 mg/dL (7-18) 01/01/19 05:44 Creatinine 0.80 mg/dL (0.70-1.30) 01/01/19 05:44 Est GFR (MDRD) Af Amer > 60 (>60) 01/01/19 05:44 Est GFR (MDRD) Non-Af > 60 (>60) 01/01/19 05:44 Glucose 175 mg/dL (65-99) H 01/01/19 05:44 POC Glucose (mg/dL) 180 mg/dL (65-99) H 01/01/19 05:45 Calcium 8.0 mg/dL (8.5-10.1) L 01/01/19 05:44 Corrected Calcium 9.4 mg/dL (8.5-10.1) 01/01/19 05:44 Total Bilirubin 0.60 mg/dL (0.2-1.0) 01/01/19 05:44 AST 14 Units/L (15-37) L 01/01/19 05:44 ALT 14 Units/L (12-78) 01/01/19 05:44 Alkaline Phosphatase 55 Units/L (46-116) 01/01/19 05:44 Total Protein 6.2 g/dL (6.4-8.2) L 01/01/19 05:44 Albumin 2.2 g/dL (3.4-5.0) L 01/01/19 05:44 Globulin 4.0 g/dL (2.5-4.5) 01/01/19 05:44 Albumin/Globulin Ratio 0.6 Ratio (1.1-2.1) L 01/01/19 05:44 Amylase 38 Units/L (25-115) 12/29/18 05:10 Lipase 75 Units/L (73-393) 12/29/18 05:10 Specimen Type Catherized urine 12/29/18 14:45 Urine Color Yellow (YELLOW) 12/29/18 14:45 Urine Appearance Hazy (CLEAR) 12/29/18 14:45 Urine pH 5.0 (5.0 - 8.0) 12/29/18 14:45 Ur Specific [place] 1.020 (1.000-1.030) 12/29/18 14:45 Urine Protein 2+ (NEGATIVE) 12/29/18 14:45 Urine Glucose (UA) 3+ (NEGATIVE) 12/29/18 14:45 Urine Ketones 3+ (NEGATIVE) 12/29/18 14:45 Urine Occult Blood Negative (NEGATIVE) 12/29/18 14:45 Urine Nitrite Negative (NEGATIVE) 12/29/18 14:45 Urine Bilirubin Negative (NEGATIVE) 12/29/18 14:45 Urine Urobilinogen Normal (NORMAL) 12/29/18 14:45 Ur Leukocyte Esterase Negative (NEGATIVE) 12/29/18 14:45 Urine RBC 0-2 /HPF (0-3) 12/29/18 14:45 Urine WBC 0-2 /HPF (0-5) 12/29/18 14:45 Ur Squamous Epith Cells Moderate /HPF (NEGATIVE) 12/29/18 14:45 Ur Transition Epith Cell Cancelled 12/29/18 14:45 Ur Renal Epithelial Cell Cancelled 12/29/18 14:45 Calcium Oxalate Crystal Cancelled 12/29/18 14:45 Cystine Crystals Cancelled 12/29/18 14:45 Uric Acid Crystals Cancelled 12/29/18 14:45 Triple Phos Crystals Cancelled 12/29/18 14:45 Tyrosine Crystals Cancelled 12/29/18 14:45 Other Crystals Cancelled 12/29/18 14:45 Amorphous Sediment 1+ /HPF (NEGATIVE) 12/29/18 14:45 Urine Bacteria Negative /HPF (NEGATIVE) 12/29/18 14:45 Hyaline Casts Cancelled 12/29/18 14:45 Granular Casts Cancelled 12/29/18 14:45 Fine Granular Casts Cancelled 12/29/18 14:45 Coarse Granular Casts Cancelled 12/29/18 14:45 RBC Casts Cancelled 12/29/18 14:45 Other Casts Cancelled 12/29/18 14:45 Urine Mucus Moderate /HPF (NEGATIVE) 12/29/18 14:45 Urine Trichomonas Cancelled 12/29/18 14:45 Urine Yeast Cancelled 12/29/18 14:45 Urine Sperm Cancelled 12/29/18 14:45 Ur Culture Indicated? No/not indicated 12/29/18 14:45 Surg PTH Frozen Section To follow 12/29/18 13:12 Pathology Result To follow 12/29/18 13:10 Tissue Pathology Cancelled 12/29/18 13:10 Plan (1) Hyponatremia: Status: Acute Plan: improving with IVF, continue gentle hydration while not taking PO intake. (2) Colonic mass: Status: Acute Plan: POD 3 s/p right colectomy for mass in the ileocecal area. Final pa thology pending. Dr. Au following, continue water and ice chips. Will follow further recommendations from Dr. Au. Continue Flagyl and Zosyn as per surgery. Continue pain control with Dilaudid (3) Benign essential HTN: Status: Acute Plan: not on home medications due to being NPO. Vasotec PRN if SBP > 160. (4) Type 1 diabetes: Status: Acute Qualifiers: Diabetes mellitus complication status: without complication Qualified Code(s): E10.9 - Type 1 diabetes mellitus without complications Plan: on SSI, required 12 units yesterday.
[2019-01-02] MEDS: DILAUDID INJ IVP PRN ×2 (00:45→06:44)
[2019-01-02] MEDS: NS 1000 ML 1,000 ML IV SCH ×5 (02:42→17:44)
[2019-01-02] MEDS: FLAGYL IV PREMIX 500 MG BAG 500 MG/100 ML BAG IV SCH ×3 (04:08→20:29)
[2019-01-02] MEDS: ZOSYN VIAL 3.375 GRAMS 3.375 G in NS 100 ML IV + SPIKE MINIBAG* 100 ML IV SCH ×3 (05:52→21:07)
[2019-01-02 06:31] LABS: BASOPHILS % (AUTO) 0.3 % (0.2-1.0); EOSINOPHILS # (AUTO) 0.2 x10^3/uL (0.0-0.2); EOSINOPHILS % (AUTO) 3.1 % (0.9-2.9); HEMATOCRIT 32.4 % (42.0-54.0); HEMOGLOBIN 11.5 g/dL (13.5-18.0); LYMPHOCYTES % (AUTO) 19.2 % (21.0-51.0); MEAN CORPUSCULAR HEMOGLOBIN 29.4 pg (27.0-34.0); MEAN CORPUSCULAR HGB CONC 35.4 g/dL (33.0-35.0); MEAN CORPUSCULAR VOLUME 83.1 fL (80.0-100.0); MEAN PLATELET VOLUME 6.5 fL (7.4-11.0); MONOCYTES # (AUTO) 0.5 x10^3/uL (0.3-0.8); NEUTROPHILS # (AUTO) 3.5 x10^3/uL (2.2-4.8); NEUTROPHILS % (AUTO) 67.4 % (42.0-75.0); PLATELET COUNT 245 X10^3/uL (150.0-450.0); RED CELL DISTRIBUTION WIDTH 12.8 % (11.6-16.5); WHITE BLOOD COUNT 5.2 X10^3/uL (3.6-10.0)
[2019-01-02 06:43] LABS: ALANINE AMINOTRANSFERASE 17 Units/L (12-78); ALBUMIN 2.1 g/dL (3.4-5.0); ALKALINE PHOSPHATASE 48 Units/L (46-116); ASPARTATE AMINO TRANSFERASE 14 Units/L (15-37); BLOOD UREA NITROGEN 9 mg/dL (7-18); CALCIUM 7.9 mg/dL (8.5-10.1); CARBON DIOXIDE 25.3 mmol/L (21-32); CHLORIDE 100 mmol/L (98-107); COR CA(FOR HYPOALB) 9.4 mg/dL (8.5-10.1); COR NA(FOR HYPERGLY) 137 mmol/L (136-145); CREATININE 0.77 mg/dL (0.70-1.30); SODIUM 135 mmol/L (136-145); eGFR NON BLACK RACES > 60 (>60)
[2019-01-02] MEDS ORDERED: NS IRRIGATION 500 ML IR ONE (08:37)
[2019-01-02] MEDS ORDERED: DILAUDID INJ IVP PRN (08:49)
--- NOTE | 2019-01-02 09:05 | PCM.PROG ---
Progress Note Progress Note for Day of Date of Exam: 01/02/19 Subjective Subjective: Patient seen at bedside with Dr. Au, JENNIFER drain removed and dressing changed. Patient tolerated some grits this AM, denies N/V. No BM yet since surgery. He has been ambulating in the hallway. Past Medical Family Social History Past Med/Fam/Surg Hx: No changes since H&P Allergies: Allergies Sulfa (Sulfonamide Antibiotics) [SULFA] Allergy (Verified 06/16/17 12:48) Review of Systems ROS: No change since H&P Vital Signs and I&O's Vital Signs: Temperature 97.5 F Pulse Rate [Apical] 93 Pulse Rate 85 Respiratory Rate 18 Blood Pressure [Left Arm] 142/70 Blood Pressure 162/75 O2 Sat by Pulse Oximetry 97 Intake and Output: Intake & Output 12/30/18 12/31/18 01/01/19 01/02/19 23:59 23:59 23:59 23:59 Intake Total 3187 / 3187 3412 / 3412 3753 / 3753 890 / 890 Output Total 2660 / 2660 1465 / 1465 1088 / 1088 52 / 52 Balance 527 / 527 1947 / 1947 2665 / 2665 838 / 838 Physical Exam Oriented: Normal Eyes: Normal Ear: Normal Nose: Normal Throat: Normal Respiratory: Normal Cardiovascular: Normal Auscultation: Bowel Sounds: Normal Tenderness: Epigastric and Other (soreness around the surgical site, bridger intact, JENNIFER drain removed, no signs of infection) Skin: Normal Musculoskeletal: Normal Mood Description: Calm and Appropriate Speech Pattern: Clear and Appropriate Laboratory and Diagnostics Result Diagrams: 01/02/19 05:34 01/02/19 05:34 Labs: Laboratory WBC 5.2 X10^3/uL (3.6-10.0) 01/02/19 05:34 RBC 3.90 X10^6/uL (4.7-6.0) L 01/02/19 05:34 Hgb 11.5 g/dL (13.5-18.0) L 01/02/19 05:34 Hct 32.4 % (42.0-54.0) L 01/02/19 05:34 MCV 83.1 fL (80.0-100.0) 01/02/19 05:34 MCH 29.4 pg (27.0-34.0) 01/02/19 05:34 MCHC 35.4 g/dL (33.0-35.0) H 01/02/19 05:34 RDW 12.8 % (11.6-16.5) 01/02/19 05:34 Plt Count 245 X10^3/uL (150.0-450.0) 01/02/19 05:34 MPV 6.5 fL (7.4-11.0) L 01/02/19 05:34 Neut % (Auto) 67.4 % (42.0-75.0) 01/02/19 05:34 Lymph % (Auto) 19.2 % (21.0-51.0) L 01/02/19 05:34 [place] % (Auto) 10.0 % (0.0-13.0) 01/02/19 05:34 Eos % (Auto) 3.1 % (0.9-2.9) H 01/02/19 05:34 Baso % (Auto) 0.3 % (0.2-1.0) 01/02/19 05:34 Neut # (Auto) 3.5 x10^3/uL (2.2-4.8) 01/02/19 05:34 Lymph # (Auto) 1.0 X10^3/uL (1.3-2.9) L 01/02/19 05:34 [place] # (Auto) 0.5 x10^3/uL (0.3-0.8) 01/02/19 05:34 Eos # (Auto) 0.2 x10^3/uL (0.0-0.2) 01/02/19 05:34 Baso # (Auto) 0.0 X10^3/uL (0.0-0.1) 01/02/19 05:34 Absolute Nucleated RBC 0.0 /100WBC 01/02/19 05:34 Sodium 135 mmol/L (136-145) L 01/02/19 05:34 Corrected Sodium 137 mmol/L (136-145) 01/02/19 05:34 Potassium 4.1 mmol/L (3.5-5.1) 01/02/19 05:34 Chloride 100 mmol/L (98-107) 01/02/19 05:34 Carbon Dioxide 25.3 mmol/L (21-32) 01/02/19 05:34 BUN 9 mg/dL (7-18) 01/02/19 05:34 Creatinine 0.77 mg/dL (0.70-1.30) 01/02/19 05:34 Est GFR (MDRD) Af Amer > 60 (>60) 01/02/19 05:34 Est GFR (MDRD) Non-Af > 60 (>60) 01/02/19 05:34 Glucose 183 mg/dL (65-99) H 01/02/19 05:34 POC Glucose (mg/dL) 180 mg/dL (65-99) H 01/02/19 05:35 Calcium 7.9 mg/dL (8.5-10.1) L 01/02/19 05:34 Corrected Calcium 9.4 mg/dL (8.5-10.1) 01/02/19 05:34 Total Bilirubin 0.40 mg/dL (0.2-1.0) 01/02/19 05:34 AST 14 Units/L (15-37) L 01/02/19 05:34 ALT 17 Units/L (12-78) 01/02/19 05:34 Alkaline Phosphatase 48 Units/L (46-116) 01/02/19 05:34 Total Protein 6.0 g/dL (6.4-8.2) L 01/02/19 05:34 Albumin 2.1 g/dL (3.4-5.0) L 01/02/19 05:34 Globulin 3.9 g/dL (2.5-4.5) 01/02/19 05:34 Albumin/Globulin Ratio 0.5 Ratio (1.1-2.1) L 01/02/19 05:34 Amylase 38 Units/L (25-115) 12/29/18 05:10 Lipase 75 Units/L (73-393) 12/29/18 05:10 Specimen Type Catherized urine 12/29/18 14:45 Urine Color Yellow (YELLOW) 12/29/18 14:45 Urine Appearance Hazy (CLEAR) 12/29/18 14:45 Urine pH 5.0 (5.0 - 8.0) 12/29/18 14:45 Ur Specific [place] 1.020 (1.000-1.030) 12/29/18 14:45 Urine Protein 2+ (NEGATIVE) 12/29/18 14:45 Urine Glucose (UA) 3+ (NEGATIVE) 12/29/18 14:45 Urine Ketones 3+ (NEGATIVE) 12/29/18 14:45 Urine Occult Blood Negative (NEGATIVE) 12/29/18 14:45 Urine Nitrite Negative (NEGATIVE) 12/29/18 14:45 Urine Bilirubin Negative (NEGATIVE) 12/29/18 14:45 Urine Urobilinogen Normal (NORMAL) 12/29/18 14:45 Ur Leukocyte Esterase Negative (NEGATIVE) 12/29/18 14:45 Urine RBC 0-2 /HPF (0-3) 12/29/18 14:45 Urine WBC 0-2 /HPF (0-5) 12/29/18 14:45 Ur Squamous Epith Cells Moderate /HPF (NEGATIVE) 12/29/18 14:45 Ur Transition Epith Cell Cancelled 12/29/18 14:45 Ur Renal Epithelial Cell Cancelled 12/29/18 14:45 Calcium Oxalate Crystal Cancelled 12/29/18 14:45 Cystine Crystals Cancelled 12/29/18 14:45 Uric Acid Crystals Cancelled 12/29/18 14:45 Triple Phos Crystals Cancelled 12/29/18 14:45 Tyrosine Crystals Cancelled 12/29/18 14:45 Other Crystals Cancelled 12/29/18 14:45 Amorphous Sediment 1+ /HPF (NEGATIVE) 12/29/18 14:45 Urine Bacteria Negative /HPF (NEGATIVE) 12/29/18 14:45 Hyaline Casts Cancelled 12/29/18 14:45 Granular Casts Cancelled 12/29/18 14:45 Fine Granular Casts Cancelled 12/29/18 14:45 Coarse Granular Casts Cancelled 12/29/18 14:45 RBC Casts Cancelled 12/29/18 14:45 Other Casts Cancelled 12/29/18 14:45 Urine Mucus Moderate /HPF (NEGATIVE) 12/29/18 14:45 Urine Trichomonas Cancelled 12/29/18 14:45 Urine Yeast Cancelled 12/29/18 14:45 Urine Sperm Cancelled 12/29/18 14:45 Ur Culture Indicated? No/not indicated 12/29/18 14:45 Surg PTH Frozen Section To follow 12/29/18 13:12 Pathology Result To follow 12/29/18 13:10 Tissue Pathology Cancelled 12/29/18 13:10 Plan (1) Hyponatremia: Status: Acute Plan: resolved, tolerating PO intake (2) Colonic mass: Status: Acute Plan: POD 4 s/p right colectomy for mass in the ileocecal area. Final pathology pending. Follow further recommendations from Dr. Au. Continue Flagyl and Zosyn Continue current diet. Pain control with [place], ANNIE Dilaudid No BM yet. Possible discharge later today, follow up with Dr. Au within one week. (3) Benign essential HTN: Status: Acute Plan: resume home meds: amlodipine, losartan-hctz, stop Vasotec (4) Type 1 diabetes: Status: Acute Qualifiers: Diabetes mellitus complication status: without complication Qualified Code(s): E10.9 - Type 1 diabetes mellitus without complications Plan: on SSI, required 2 units yesterday
[2019-01-02] MEDS: LOVENOX INJ 40 MG SYR SC SCH (09:55)
[2019-01-02] MEDS: ASPIRIN 81 MG CHEWTAB PO SCH (10:16)
[2019-01-02] MEDS: NORVASC TAB 10 MG PO SCH (10:16)
[2019-01-02] MEDS: HYZAAR 50/12.5 MG PO SCH (10:18)
[2019-01-02] MEDS: NORCO 10/325 TAB PO PRN ×2 (11:32→17:42)
--- NOTE | 2019-01-02 15:07 | DR.PROGNOT ---
Hospital Progress Notes - Progress Note for Day of: Progress Note Date: 01/02/19 - Chief Complaint Chief Complaint: s/p Rt colectomy for mass around the appendix and cecum . final pathology report is not available yet . pt is doing fairly well . ambulatory , toleraring diet well ,no BM yet . JENNIFER was removed and dressing was changed . - Past Medical Family Social History Past Med/Fam/Surg Hx: No changes since H&P Allergies: Allergies Sulfa (Sulfonamide Antibiotics) [SULFA] Allergy (Verified 06/16/17 12:48) - Review Of Systems ROS: No change since H&P - Vital Signs Vital Signs: Temperature 97.7 F Pulse Rate [Apical] 93 Pulse Rate 91 Respiratory Rate 21 Blood Pressure [Left Arm] 142/70 Blood Pressure 162/71 O2 Sat by Pulse Oximetry 94 - Physical Exam Oriented: Normal Eyes: Normal Ear: Normal Nose: Normal Throat: Normal Respiratory: Normal Cardiovascular: Normal : Normal, Other (has funez cath in place .) GI:Auscultation: Normal GI:Palpation: Normal GI: Tenderness: Diffuse (mild diffuse tenderness , BS+..no wound infection .), Other (soreness around the surgical site, bridger intact, JENNIFER drain removed, no signs of infection) Skin: Normal Musculoskeletal: Normal Mood Description: Calm, Appropriate Speech Pattern: Clear, Appropriate - Laboratory and Diagnostics Result Diagrams: 01/02/19 05:34 01/02/19 05:34 Labs: Laboratory WBC 5.2 X10^3/uL (3.6-10.0) 01/02/19 05:34 RBC 3.90 X10^6/uL (4.7-6.0) L 01/02/19 05:34 Hgb 11.5 g/dL (13.5-18.0) L 01/02/19 05:34 Hct 32.4 % (42.0-54.0) L 01/02/19 05:34 MCV 83.1 fL (80.0-100.0) 01/02/19 05:34 MCH 29.4 pg (27.0-34.0) 01/02/19 05:34 MCHC 35.4 g/dL (33.0-35.0) H 01/02/19 05:34 RDW 12.8 % (11.6-16.5) 01/02/19 05:34 Plt Count 245 X10^3/uL (150.0-450.0) 01/02/19 05:34 MPV 6.5 fL (7.4-11.0) L 01/02/19 05:34 Neut % (Auto) 67.4 % (42.0-75.0) 01/02/19 05:34 Lymph % (Auto) 19.2 % (21.0-51.0) L 01/02/19 05:34 [place] % (Auto) 10.0 % (0.0-13.0) 01/02/19 05:34 Eos % (Auto) 3.1 % (0.9-2.9) H 01/02/19 05:34 Baso % (Auto) 0.3 % (0.2-1.0) 01/02/19 05:34 Neut # (Auto) 3.5 x10^3/uL (2.2-4.8) 01/02/19 05:34 Lymph # (Auto) 1.0 X10^3/uL (1.3-2.9) L 01/02/19 05:34 [place] # (Auto) 0.5 x10^3/uL (0.3-0.8) 01/02/19 05:34 Eos # (Auto) 0.2 x10^3/uL (0.0-0.2) 01/02/19 05:34 Baso # (Auto) 0.0 X10^3/uL (0.0-0.1) 01/02/19 05:34 Absolute Nucleated RBC 0.0 /100WBC 01/02/19 05:34 Sodium 135 mmol/L (136-145) L 01/02/19 05:34 Corrected Sodium 137 mmol/L (136-145) 01/02/19 05:34 Potassium 4.1 mmol/L (3.5-5.1) 01/02/19 05:34 Chloride 100 mmol/L (98-107) 01/02/19 05:34 Carbon Dioxide 25.3 mmol/L (21-32) 01/02/19 05:34 BUN 9 mg/dL (7-18) 01/02/19 05:34 Creatinine 0.77 mg/dL (0.70-1.30) 01/02/19 05:34 Est GFR (MDRD) Af Amer > 60 (>60) 01/02/19 05:34 Est GFR (MDRD) Non-Af > 60 (>60) 01/02/19 05:34 Glucose 183 mg/dL (65-99) H 01/02/19 05:34 POC Glucose (mg/dL) 196 mg/dL (65-99) H 01/02/19 11:26 Hemoglobin A1c 9.4 % 01/02/19 05:34 Calcium 7.9 mg/dL (8.5-10.1) L 01/02/19 05:34 Corrected Calcium 9.4 mg/dL (8.5-10.1) 01/02/19 05:34 Total Bilirubin 0.40 mg/dL (0.2-1.0) 01/02/19 05:34 AST 14 Units/L (15-37) L 01/02/19 05:34 ALT 17 Units/L (12-78) 01/02/19 05:34 Alkaline Phosphatase 48 Units/L (46-116) 01/02/19 05:34 Total Protein 6.0 g/dL (6.4-8.2) L 01/02/19 05:34 Albumin 2.1 g/dL (3.4-5.0) L 01/02/19 05:34 Globulin 3.9 g/dL (2.5-4.5) 01/02/19 05:34 Albumin/Globulin Ratio 0.5 Ratio (1.1-2.1) L 01/02/19 05:34 Amylase 38 Units/L (25-115) 12/29/18 05:10 Lipase 75 Units/L (73-393) 12/29/18 05:10 Specimen Type Catherized urine 12/29/18 14:45 Urine Color Yellow (YELLOW) 12/29/18 14:45 Urine Appearance Hazy (CLEAR) 12/29/18 14:45 Urine pH 5.0 (5.0 - 8.0) 12/29/18 14:45 Ur Specific [place] 1.020 (1.000-1.030) 12/29/18 14:45 Urine Protein 2+ (NEGATIVE) 12/29/18 14:45 Urine Glucose (UA) 3+ (NEGATIVE) 12/29/18 14:45 Urine Ketones 3+ (NEGATIVE) 12/29/18 14:45 Urine Occult Blood Negative (NEGATIVE) 12/29/18 14:45 Urine Nitrite Negative (NEGATIVE) 12/29/18 14:45 Urine Bilirubin Negative (NEGATIVE) 12/29/18 14:45 Urine Urobilinogen Normal (NORMAL) 12/29/18 14:45 Ur Leukocyte Esterase Negative (NEGATIVE) 12/29/18 14:45 Urine RBC 0-2 /HPF (0-3) 12/29/18 14:45 Urine WBC 0-2 /HPF (0-5) 12/29/18 14:45 Ur Squamous Epith Cells Moderate /HPF (NEGATIVE) 12/29/18 14:45 Ur Transition Epith Cell Cancelled 12/29/18 14:45 Ur Renal Epithelial Cell Cancelled 12/29/18 14:45 Calcium Oxalate Crystal Cancelled 12/29/18 14:45 Cystine Crystals Cancelled 12/29/18 14:45 Uric Acid Crystals Cancelled 12/29/18 14:45 Triple Phos Crystals Cancelled 12/29/18 14:45 Tyrosine Crystals Cancelled 12/29/18 14:45 Other Crystals Cancelled 12/29/18 14:45 Amorphous Sediment 1+ /HPF (NEGATIVE) 12/29/18 14:45 Urine Bacteria Negative /HPF (NEGATIVE) 12/29/18 14:45 Hyaline Casts Cancelled 12/29/18 14:45 Granular Casts Cancelled 12/29/18 14:45 Fine Granular Casts Cancelled 12/29/18 14:45 Coarse Granular Casts Cancelled 12/29/18 14:45 RBC Casts Cancelled 12/29/18 14:45 Other Casts Cancelled 12/29/18 14:45 Urine Mucus Moderate /HPF (NEGATIVE) 12/29/18 14:45 Urine Trichomonas Cancelled 12/29/18 14:45 Urine Yeast Cancelled 12/29/18 14:45 Urine Sperm Cancelled 12/29/18 14:45 Ur Culture Indicated? No/not indicated 12/29/18 14:45 Surg PTH Frozen Section To follow 12/29/18 13:12 Pathology Result To follow 12/29/18 13:10 Tissue Pathology Cancelled 12/29/18 13:10 - Assessment and Plan 1: PO Rt colectomy for mass of ileocecal area ( appendix , cecum or. small bowel origin ). 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 DM, HTN . same PO care , soft diet , DVT prophylaxis , control DM . OOB . could be d/c in am and will follow in 10 days. d/c NGT . may have only water today .. - Problem Patient Problems: Patient Problems Colonic mass (Acute) K63.89 Acute appendicitis (Acute) K35.80 Type 1 diabetes (Acute) E10.9 Hyponatremia (Acute) E87.1 Benign essential HTN (Acute) I10
[2019-01-02] MEDS: HumuLIN R SUBCUT PRN (20:29)
[2019-01-02] MEDS ORDERED: COLACE CAP 100 MG PO SCH (21:00)
[2019-01-03] MEDS: NORCO 10/325 TAB PO PRN (00:13)
[2019-01-03] MEDS: FLAGYL IV PREMIX 500 MG BAG 500 MG/100 ML BAG IV SCH (03:13)
[2019-01-03] MEDS: NS 1000 ML 1,000 ML IV SCH (03:14)
[2019-01-03] MEDS: ZOSYN VIAL 3.375 GRAMS 3.375 G in NS 100 ML IV + SPIKE MINIBAG* 100 ML IV SCH (05:01)
[2019-01-03] MEDS: HumuLIN R SUBCUT PRN (05:29)
[2019-01-03 05:54] LABS: BASOPHILS % (AUTO) 0.5 % (0.2-1.0); EOSINOPHILS # (AUTO) 0.1 x10^3/uL (0.0-0.2); EOSINOPHILS % (AUTO) 2.5 % (0.9-2.9); HEMATOCRIT 33.2 % (42.0-54.0); HEMOGLOBIN 11.7 g/dL (13.5-18.0); LYMPHOCYTES # (AUTO) 1.2 X10^3/uL (1.3-2.9); MEAN CORPUSCULAR HEMOGLOBIN 29.1 pg (27.0-34.0); MEAN CORPUSCULAR HGB CONC 35.2 g/dL (33.0-35.0); MEAN CORPUSCULAR VOLUME 82.8 fL (80.0-100.0); MEAN PLATELET VOLUME 6.5 fL (7.4-11.0); MONOCYTES # (AUTO) 0.6 x10^3/uL (0.3-0.8); MONOCYTES % (AUTO) 11.2 % (0.0-13.0); NEUTROPHILS # (AUTO) 3.4 x10^3/uL (2.2-4.8); NEUTROPHILS % (AUTO) 62.8 % (42.0-75.0); PLATELET COUNT 311 X10^3/uL (150.0-450.0); RED BLOOD COUNT 4.01 X10^6/uL (4.7-6.0); RED CELL DISTRIBUTION WIDTH 13.1 % (11.6-16.5); WHITE BLOOD COUNT 5.4 X10^3/uL (3.6-10.0)
[2019-01-03 05:59] LABS: BLOOD UREA NITROGEN 7 mg/dL (7-18); CALCIUM 8.2 mg/dL (8.5-10.1); CARBON DIOXIDE 26.3 mmol/L (21-32); CHLORIDE 98 mmol/L (98-107); COR NA(FOR HYPERGLY) 137 mmol/L (136-145); SODIUM 134 mmol/L (136-145); eGFR NON BLACK RACES > 60 (>60)
[2019-01-03] MEDS ORDERED: MILK OF MAGNESIA PO ONE (08:13)
[2019-01-03] MEDS ORDERED: K-DUR TAB 20 MEQ PO PRN (08:35)
[2019-01-03] MEDS ORDERED: MICRO K EXTEN CAP 10 MEQ PO PRN (08:35)
[2019-01-03] MEDS ORDERED: MICRO K EXTEN CAP 10 MEQ PO ONE (08:39)
[2019-01-03] MEDS: HYZAAR 50/12.5 MG PO SCH (08:43)
[2019-01-03] MEDS: ASPIRIN 81 MG CHEWTAB PO SCH (08:44)
[2019-01-03] MEDS: NORVASC TAB 10 MG PO SCH (08:44)
[2019-01-03] MEDS: LOVENOX INJ 40 MG SYR SC SCH (08:44)
--- NOTE | 2019-01-03 10:38 | W.DIS.FURT ---
Summary of Discharge Discharge Summary of Date Date of Exam: 01/03/19 Admission Date Date of Admission: 12/29/18 Admission Diagnosis Patient Problems (Updated 01/03/19 @ 10:34 by Keri Toure) Colonic mass (Acute) K63.89 Acute appendicitis (Acute) K35.80 Type 1 diabetes (Chronic) E10.9 Hyponatremia (Acute) E87.1 Benign essential HTN (Acute) I10 Hospital Course: Mr. lOmos is a 63y/o male who presented with diffuse abdominal pain since 12/23/18. There was no radiation, it was mostly constant. He saw his primary care physician on 12/26/18, and was placed on Cipro but his pain continued. He also reported a low-grade fever. CTAP done in ED showed acute appendicitis with associated inflammation and thickening in the duodenum. Dr. Au was consulted and patient was taken to the OR. He was noted to have a mass in the ileocecal area, right colectomy was performed. Frozen section biopsy during the procedure was inconclusive. Final pathology is pending. Patient was managed with bowel rest and pain control. Diet was advanced gradually. He had a JENNIFER drain which was removed on Day 4 and dressing was changed. His BP was elevated as he was NPO, improved with resuming his home medications. Patient is also has uncontrolled diabetes on insulin. He does not check his glucose daily. During his stay, he was started on sliding scale regular insulin. Patient was ambulating in the hallway. He had good bowel sounds, flatus and tolerating diabetic diet. He will follow up with me at the [facility] clinic in one week and Dr. Au in 10 days to remove bridger and discuss pathology results. Patient is stable for discharge. He was advised to check his blood glucose daily and keep a log. Insulin was adjusted for discharge. Vital Signs: Vital Signs (72 hours) 12/31/18 11:00 12/31/18 12:00 12/31/18 12:12 Temperature 98.7 F Pulse Rate 97 H 96 H Respiratory Rate 17 12 20 Blood Pressure 153/72 164/77 O2 Sat by Pulse Oximetry 93 L 95 12/31/18 12:42 12/31/18 13:00 12/31/18 14:00 Temperature Pulse Rate 98 H 108 H Respiratory Rate 15 16 18 Blood Pressure 154/76 166/81 O2 Sat by Pulse Oximetry 97 96 12/31/18 15:00 12/31/18 16:00 12/31/18 16:10 Temperature 99.9 F H Pulse Rate 100 H 98 H Respiratory Rate 19 14 21 Blood Pressure 169/83 141/67 O2 Sat by Pulse Oximetry 97 95 12/31/18 16:40 12/31/18 17:00 12/31/18 19:00 Temperature 98.6 F Pulse Rate 99 H 98 H Respiratory Rate 20 12 23 Blood Pressure 148/70 O2 Sat by Pulse Oximetry 95 95 12/31/18 19:54 12/31/18 20:00 12/31/18 20:24 Temperature Pulse Rate 97 H Respiratory Rate 19 16 15 Blood Pressure O2 Sat by Pulse Oximetry 96 12/31/18 21:00 12/31/18 22:00 12/31/18 22:22 Temperature Pulse Rate 94 H 90 90 Respiratory Rate 15 12 11 L Blood Pressure 204/89 O2 Sat by Pulse Oximetry 96 97 96 12/31/18 22:24 12/31/18 23:00 12/31/18 23:01 Temperature 98.7 F Pulse Rate 90 89 87 Respiratory Rate 16 15 17 Blood Pressure 178/81 177/82 O2 Sat by Pulse Oximetry 98 97 96 12/31/18 23:10 12/31/18 23:35 12/31/18 23:36 Temperature Pulse Rate 92 H 99 H 97 H Respiratory Rate 18 27 H 25 H Blood Pressure 171/81 191/86 162/70 O2 Sat by Pulse Oximetry 97 93 L 94 L 01/01/19 00:00 01/01/19 00:10 01/01/19 00:30 Temperature Pulse Rate 97 H 93 H Respiratory Rate 21 17 15 Blood Pressure 161/80 141/67 O2 Sat by Pulse Oximetry 93 L 95 01/01/19 00:40 01/01/19 01:00 01/01/19 02:00 Temperature Pulse Rate 95 H 86 Respiratory Rate 14 13 12 Blood Pressure 147/65 109/59 O2 Sat by Pulse Oximetry 95 96 01/01/19 03:00 01/01/19 04:00 01/01/19 04:05 Temperature 98.1 F Pulse Rate 89 102 H 95 H Respiratory Rate 15 20 25 H Blood Pressure 132/60 146/68 O2 Sat by Pulse Oximetry 96 93 L 92 L 01/01/19 04:38 01/01/19 05:00 01/01/19 05:08 Temperature Pulse Rate 91 H Respiratory Rate 15 14 20 Blood Pressure 160/74 O2 Sat by Pulse Oximetry 92 L 01/01/19 06:00 01/01/19 06:36 01/01/19 07:00 Temperature Pulse Rate 94 H 93 H 89 Respiratory Rate 20 19 16 Blood Pressure 141/72 140/74 O2 Sat by Pulse Oximetry 95 94 L 94 L 01/01/19 08:00 01/01/19 09:00 01/01/19 09:11 Temperature 98.4 F Pulse Rate 90 94 H Respiratory Rate 18 21 20 Blood Pressure 147/67 177/79 O2 Sat by Pulse Oximetry 96 95 01/01/19 09:41 01/01/19 10:00 01/01/19 11:00 Temperature Pulse Rate 90 86 Respiratory Rate 17 20 17 Blood Pressure 166/79 151/74 O2 Sat by Pulse Oximetry 96 96 01/01/19 12:00 01/01/19 13:00 01/01/19 14:00 Temperature 98.5 F Pulse Rate 85 89 84 Respiratory Rate 21 23 19 Blood Pressure 142/65 146/70 139/65 O2 Sat by Pulse Oximetry 96 95 94 L 01/01/19 14:38 01/01/19 15:00 01/01/19 15:08 Temperature Pulse Rate 87 Respiratory Rate 22 16 20 Blood Pressure 145/65 O2 Sat by Pulse Oximetry 96 01/01/19 16:00 01/01/19 17:00 01/01/19 18:00 Temperature 99.7 F H Pulse Rate 89 89 87 Respiratory Rate 21 21 19 Blood Pressure 152/72 165/77 156/72 O2 Sat by Pulse Oximetry 94 L 94 L 94 L 01/01/19 19:00 01/01/19 19:38 01/01/19 20:00 Temperature 98.7 F Pulse Rate 86 90 Respiratory Rate 17 22 14 Blood Pressure 168/67 147/63 O2 Sat by Pulse Oximetry 95 97 01/01/19 20:08 01/01/19 21:00 01/01/19 22:00 Temperature Pulse Rate 87 84 Respiratory Rate 13 13 12 Blood Pressure 138/63 156/68 O2 Sat by Pulse Oximetry 97 96 01/01/19 23:10 01/01/19 23:41 01/02/19 00:00 Temperature 97.5 F L Pulse Rate 94 H 89 87 Respiratory Rate 20 15 Blood Pressure 142/67 145/69 O2 Sat by Pulse Oximetry 93 L 94 L 01/02/19 00:45 01/02/19 01:00 01/02/19 01:10 Temperature Pulse Rate 81 Respiratory Rate 12 13 15 Blood Pressure 140/65 O2 Sat by Pulse Oximetry 96 01/02/19 02:00 01/02/19 03:00 01/02/19 04:00 Temperature 97.5 F L Pulse Rate 79 79 81 Respiratory Rate 13 14 22 Blood Pressure 139/67 147/70 164/83 O2 Sat by Pulse Oximetry 95 98 97 01/02/19 05:00 01/02/19 06:00 01/02/19 06:44 Temperature Pulse Rate 76 85 Respiratory Rate 11 L 26 H 18 Blood Pressure 152/70 162/75 O2 Sat by Pulse Oximetry 100 97 01/02/19 07:00 01/02/19 07:14 01/02/19 08:00 Temperature Pulse Rate 84 93 H Respiratory Rate 16 18 19 Blood Pressure 145/70 158/80 O2 Sat by Pulse Oximetry 96 95 01/02/19 09:00 01/02/19 10:00 01/02/19 11:00 Temperature Pulse Rate 93 H 98 H 92 H Respiratory Rate 17 15 22 Blood Pressure 158/67 O2 Sat by Pulse Oximetry 96 94 L 95 01/02/19 11:32 01/02/19 12:00 01/02/19 12:32 Temperature 97.7 F Pulse Rate 98 H Respiratory Rate 18 20 18 Blood Pressure 169/75 O2 Sat by Pulse Oximetry 94 L 01/02/19 13:00 01/02/19 14:00 01/02/19 15:00 Temperature Pulse Rate 96 H 91 H 91 H Respiratory Rate 23 21 20 Blood Pressure 160/72 162/71 156/73 O2 Sat by Pulse Oximetry 97 94 L 94 L 01/02/19 16:00 01/02/19 17:00 01/02/19 17:42 Temperature 98.8 F Pulse Rate 84 82 Respiratory Rate 20 20 18 Blood Pressure 164/76 164/76 O2 Sat by Pulse Oximetry 94 L 94 L 01/02/19 18:00 01/02/19 18:42 01/02/19 19:00 Temperature Pulse Rate 85 93 H Respiratory Rate 18 18 18 Blood Pressure 168/76 168/76 O2 Sat by Pulse Oximetry 95 95 01/02/19 20:00 01/02/19 21:00 01/02/19 22:00 Temperature 98.6 F Pulse Rate 92 H 95 H 93 H Respiratory Rate 20 18 18 Blood Pressure 143/70 159/78 141/66 O2 Sat by Pulse Oximetry 94 L 95 94 L 01/02/19 23:00 01/03/19 00:00 01/03/19 00:13 Temperature 98.4 F Pulse Rate 93 H 87 Respiratory Rate 18 20 18 Blood Pressure 151/66 149/76 O2 Sat by Pulse Oximetry 94 L 95 01/03/19 01:00 01/03/19 01:13 01/03/19 02:00 Temperature Pulse Rate 72 79 Respiratory Rate 18 18 16 Blood Pressure 135/64 142/69 O2 Sat by Pulse Oximetry 96 95 01/03/19 03:00 01/03/19 04:00 01/03/19 05:00 Temperature 98.0 F Pulse Rate 77 73 82 Respiratory Rate 18 18 18 Blood Pressure 142/68 145/76 161/79 O2 Sat by Pulse Oximetry 93 L 94 L 93 L 01/03/19 06:00 01/03/19 07:00 01/03/19 08:00 Temperature 99.1 F Pulse Rate 73 78 79 Respiratory Rate 18 22 22 Blood Pressure 140/63 160/74 156/71 O2 Sat by Pulse Oximetry 94 L 93 L 92 L 01/03/19 09:03 01/03/19 09:04 Temperature Pulse Rate 78 79 Respiratory Rate Blood Pressure 160/74 156/71 O2 Sat by Pulse Oximetry 93 L 92 L Labs: Laboratory Last Values WBC 5.4 X10^3/uL (3.6-10.0) 01/03/19 05:29 RBC 4.01 X10^6/uL (4.7-6.0) L 01/03/19 05:29 Hgb 11.7 g/dL (13.5-18.0) L 01/03/19 05:29 Hct 33.2 % (42.0-54.0) L 01/03/19 05:29 MCV 82.8 fL (80.0-100.0) 01/03/19 05:29 MCH 29.1 pg (27.0-34.0) 01/03/19 05:29 MCHC 35.2 g/dL (33.0-35.0) H 01/03/19 05:29 RDW 13.1 % (11.6-16.5) 01/03/19 05:29 Plt Count 311 X10^3/uL (150.0-450.0) 01/03/19 05:29 MPV 6.5 fL (7.4-11.0) L 01/03/19 05:29 Neut % (Auto) 62.8 % (42.0-75.0) 01/03/19 05:29 Lymph % (Auto) 23.0 % (21.0-51.0) 01/03/19 05:29 [place] % (Auto) 11.2 % (0.0-13.0) 01/03/19 05:29 Eos % (Auto) 2.5 % (0.9-2.9) 01/03/19 05:29 Baso % (Auto) 0.5 % (0.2-1.0) 01/03/19 05:29 Neut # (Auto) 3.4 x10^3/uL (2.2-4.8) 01/03/19 05:29 Lymph # (Auto) 1.2 X10^3/uL (1.3-2.9) L 01/03/19 05:29 [place] # (Auto) 0.6 x10^3/uL (0.3-0.8) 01/03/19 05:29 Eos # (Auto) 0.1 x10^3/uL (0.0-0.2) 01/03/19 05:29 Baso # (Auto) 0.0 X10^3/uL (0.0-0.1) 01/03/19 05:29 Absolute Nucleated RBC 0.0 /100WBC 01/03/19 05:29 Sodium 134 mmol/L (136-145) L 01/03/19 05:29 Corrected Sodium 137 mmol/L (136-145) 01/03/19 05:29 Potassium 3.4 mmol/L (3.5-5.1) L 01/03/19 05:29 Chloride 98 mmol/L (98-107) 01/03/19 05:29 Carbon Dioxide 26.3 mmol/L (21-32) 01/03/19 05:29 BUN 7 mg/dL (7-18) 01/03/19 05:29 Creatinine 0.90 mg/dL (0.70-1.30) 01/03/19 05:29 Est GFR (MDRD) Af Amer > 60 (>60) 01/03/19 05:29 Est GFR (MDRD) Non-Af > 60 (>60) 01/03/19 05:29 Glucose 234 mg/dL (65-99) H 01/03/19 05:29 POC Glucose (mg/dL) 229 mg/dL (65-99) H 01/03/19 05:14 Hemoglobin A1c 9.4 % 01/02/19 05:34 Calcium 8.2 mg/dL (8.5-10.1) L 01/03/19 05:29 Corrected Calcium 9.4 mg/dL (8.5-10.1) 01/02/19 05:34 Magnesium 1.7 mg/dL (1.7-2.9) 01/03/19 05:29 Total Bilirubin 0.40 mg/dL (0.2-1.0) 01/02/19 05:34 AST 14 Units/L (15-37) L 01/02/19 05:34 ALT 17 Units/L (12-78) 01/02/19 05:34 Alkaline Phosphatase 48 Units/L (46-116) 01/02/19 05:34 Total Protein 6.0 g/dL (6.4-8.2) L 01/02/19 05:34 Albumin 2.1 g/dL (3.4-5.0) L 01/02/19 05:34 Globulin 3.9 g/dL (2.5-4.5) 01/02/19 05:34 Albumin/Globulin Ratio 0.5 Ratio (1.1-2.1) L 01/02/19 05:34 Amylase 38 Units/L (25-115) 12/29/18 05:10 Lipase 75 Units/L (73-393) 12/29/18 05:10 Specimen Type Catherized urine 12/29/18 14:45 Urine Color Yellow (YELLOW) 12/29/18 14:45 Urine Appearance Hazy (CLEAR) 12/29/18 14:45 Urine pH 5.0 (5.0 - 8.0) 12/29/18 14:45 Ur Specific [place] 1.020 (1.000-1.030) 12/29/18 14:45 Urine Protein 2+ (NEGATIVE) 12/29/18 14:45 Urine Glucose (UA) 3+ (NEGATIVE) 12/29/18 14:45 Urine Ketones 3+ (NEGATIVE) 12/29/18 14:45 Urine Occult Blood Negative (NEGATIVE) 12/29/18 14:45 Urine Nitrite Negative (NEGATIVE) 12/29/18 14:45 Urine Bilirubin Negative (NEGATIVE) 12/29/18 14:45 Urine Urobilinogen Normal (NORMAL) 12/29/18 14:45 Ur Leukocyte Esterase Negative (NEGATIVE) 12/29/18 14:45 Urine RBC 0-2 /HPF (0-3) 12/29/18 14:45 Urine WBC 0-2 /HPF (0-5) 12/29/18 14:45 Ur Squamous Epith Cells Moderate /HPF (NEGATIVE) 12/29/18 14:45 Ur Transition Epith Cell Cancelled 12/29/18 14:45 Ur Renal Epithelial Cell Cancelled 12/29/18 14:45 Calcium Oxalate Crystal Cancelled 12/29/18 14:45 Cystine Crystals Cancelled 12/29/18 14:45 Uric Acid Crystals Cancelled 12/29/18 14:45 Triple Phos Crystals Cancelled 12/29/18 14:45 Tyrosine Crystals Cancelled 12/29/18 14:45 Other Crystals Cancelled 12/29/18 14:45 Amorphous Sediment 1+ /HPF (NEGATIVE) 12/29/18 14:45 Urine Bacteria Negative /HPF (NEGATIVE) 12/29/18 14:45 Hyaline Casts Cancelled 12/29/18 14:45 Granular Casts Cancelled 12/29/18 14:45 Fine Granular Casts Cancelled 12/29/18 14:45 Coarse Granular Casts Cancelled 12/29/18 14:45 RBC Casts Cancelled 12/29/18 14:45 Other Casts Cancelled 12/29/18 14:45 Urine Mucus Moderate /HPF (NEGATIVE) 12/29/18 14:45 Urine Trichomonas Cancelled 12/29/18 14:45 Urine Yeast Cancelled 12/29/18 14:45 Urine Sperm Cancelled 12/29/18 14:45 Ur Culture Indicated? No/not indicated 12/29/18 14:45 Surg PTH Frozen Section To follow 12/29/18 13:12 Pathology Result To follow 12/29/18 13:10 Tissue Pathology Cancelled 12/29/18 13:10 Reason For Visit: ACUTE APPENDICITIS,TYPE 1 DM,HTN,MILD HYPONATREMIA Discharge Date Discharge Date: 01/03/19 Discharge Diagnosis All Active Problems (Updated 01/03/19 @ 10:34 by Keri Toure) Colonic mass (Acute) Acute appendicitis (Acute) Type 1 diabetes (Chronic) Hyponatremia (Acute) Benign essential HTN (Acute) Plan of Treatment: Continue with present treatment and follow up plan. Pt is to keep follow up appointment as instructed and take medications as ordered. Discharge Medications Discharge Medications: Sulfa (Sulfonamide Antibiotics) [SULFA] Allergy (Verified 06/16/17 12:48) CONTINUE taking the following medications amlodipine 10 mg PO DAILY 12/29/18 [History] aspirin [Aspir-81] 81 mg PO DAILY 12/29/18 [History] losartan-hydrochlorothiazide 1 tab PO DAILY 12/29/18 [History] New Prescriptions Merry Contreras U-100 Insulin 15 unit SUBCUT DAILY #0 ml 01/03/19 [Rx] Humulin R Regular U-100 Insuln 5 unit SUBCUT DIRECTED #0 ml 01/03/19 [Rx] Follow up and Referral Follow Up: 1 Week (Dr. AU) 1 Week (Dr. Toure ) Discharge Disposition Discharge Disposition: Stable
[2019-01-03 10:40] VITALS: BP 149/76
== END 2019-01-03 11:25 | disposition home or self-care (01) | DRG 330 ==
LOC: ICU 04:23 → ER 04:23 → OBSVTOIN 08:11 → ICU 10:20
PROVIDERS: ADMIT Obstetrics & Gynecology Obstetrics; ATTEND Internal Medicine
PROC: APPYLAP (ICD-10-PCS; 2018-12-29 10:15)
DX: E87.1 Hypo-osmolality and hyponatremia; K35.30 Acute appendicitis with localized peritonitis, without perforation or gangrene; C18.2 Malignant neoplasm of ascending colon; R94.31 Abnormal electrocardiogram [ECG] [EKG]; E10.65 Type 1 diabetes mellitus with hyperglycemia; I10 Essential (primary) hypertension
CPT/HCPCS: 36415; 71010; 71045; 74177; 80048; 80053; 81001; 82150; 83036; 83690; 83735; 85025; 93005; 94640; 96365; 96367; 96374; 96375; 97116; 97162; 97165; 99284; A4216; A4222; C9113; J3490; S0020; S0030; J0330; J1100; J1170; J1650; J1815; J1885; J2250; J2270; J2405; J2543; J2704; J2710; J2765; J3010; J7030; J7050; J7620; S5010

== ENCOUNTER 2022-03-05 11:37 | Observation (INO) ==
[2022-03-05 11:47] VITALS: BMI 31.5
--- NOTE | 2022-03-05 12:07 | DR.ABDMALE ---
HPI Time seen Time Seen by Provider: 03/05/22 12:06 PCP Primary Care Physician: brody byers Complaint Chief Complaint Doctors Comments: 66 y/o male presents for evaluation. Having diffuse abdominal pain since early this am. Pain is sharp, diffuse, does not radiate. + worse with palpation, nothing makes it better. Denies fever, URI symptoms. +slight nausea, no vomiting. Moved bowels earlier, no problems. Has a h/o colon ca, of the appendix. Was resected, had chemotherapy. No h/o bowel obstructions. Had routine labs yesterday. Was notified that his Hgb is low, in the 7s. Denies any black stools, no known blood loss. Chief Complaint:: pt c/o of severe stomach pains that started this morning that radiates across his abd. pt states he has a low hemoglobin that was checked yesterday at his primary doctor. COVID-19 Coronavirus risk:travel/contact w/high risk person: No Has patient experienced Coronavirus symptoms: No Reviewed Nurses Notes Review: Yes Source History provided by:: patient Mode of arrival Mode of Arrival: Ambulatory Timing Onset of Chief Complaint: 03/05/22 PMH PMH Past Medical History: Yes Past Medical History: Diabetes and Hypertension Past Medical History Comment: h/o colon ca (of the appendix) Past Surgical History: Yes Surgical History: Appendectomy, Spleenectomy and Other Family History History of Family Medical Conditions: Yes Family Medical History: Diabetes Mellitus and Heart Failure Social History Does patient currently use any type of tobacco product: No Have you used tobacco products in the last 12 months: No Type of Tobacco Use: None Does any household member use tobacco: No Alcohol Use: None Do you use any recreational Drugs:: No Lives With: Spouse Lives Where: Home Travel Risk Coronavirus risk:travel/contact w/high risk person: No Has patient experienced Coronavirus symptoms: No Infectious screening In the last 2 months have you had wt loss of >10#?: NO Have you had fever, night sweats or hemotysis?: No Have you traveled outside the country in the last 6 months?: No Isolation: Standard ROS Review of Systems Constitutional: No Symptoms Reported Eyes: No Symptoms Reported ENTM: No Symptoms Reported Respiratoy: No Symptoms Reported Cardiovascular: No Symptoms Reported Gastrointestinal/Abdominal: See HPI Genitourinary: No Symptoms Reported Neurological: No Symptoms Reported Musculoskeletal: No Symptoms Reported Integumentary: No Symptoms Reported Hematologic/Lymphatic: No Symptoms Reported Psychiatric: No Symptoms Reported All Other Systems: Reviewed and Negative PE Vital Signs Vital Signs: Temp Pulse Resp BP BP Pulse Ox O2 Del Method 12/29/18 18:00 142/70 03/05/22 12:57 20 03/05/22 15:58 20 03/05/22 15:28 20 03/05/22 12:27 20 03/05/22 11:38 99.0 F 87 20 143/69 99 Room Air 07/14/21 11:15 121/72 General General Appearance: Alert and In No Apparent Distress Eyes Eye exam: PERRL and EOMI ENT ENT Exam: Normal Oropharynx and Mucous Membranes Moist Neck Neck Exam: Normal Inspection; negative Tenderness Respiratory Respiratory Exam: Normal Lung Sounds Bilat; negative Accessory Muscle Use or Respiratory Distress Cardiovascular Cardiovascular Exam: Regular Rate, Normal Rhythm and Normal Heart Sounds Abdominal Exam Abdominal Exam: Normal Bowel Sounds, Soft and Tenderness (all quadrants, no guarding, no rebound. ) Extremeties Extremities Exam: Normal Inspection and Full ROM; negative Edema Neurologic Neurological Exam: Alert, Oriented X3 and CN II-XII Intact; negative Motor Sensory Deficit Skin Skin Exam: Warm and Dry COURSE Treatment Treatment: 66 y/o male developed diffuse abdominal pain today. Was told he was anemic on routine labs done yesterday as well. W/u initiated. Pt given IV fluids, IV morphine/zofran. No improvement with morphine, given IV dilaudid, 1 mg. 1600 - + anemia, 6.9. Will check stool for blood. CT abd/pelvis without obvious abnormalities. Recommend admission for blood transfusion, further observation of his abdominal pain. Dr Hall accepted the admmission. Will consult with his surgeon, Dr Randolph. ROR Labs Reviewed Laboratory Results Reviewed?: Yes Result Diagrams: 03/05/22 12:18 03/05/22 12:18 Laboratory: WBC 13.7 X10^3/uL (3.6-10.0) H 03/05/22 12:18 RBC 2.87 X10^6/uL (4.7-6.0) L 03/05/22 12:18 Hgb 6.9 g/dL (13.5-18.0) L* 03/05/22 12:18 Hct 21.6 % (42.0-54.0) L 03/05/22 12:18 MCV 75.4 fL (80.0-100.0) L 03/05/22 12:18 MCH 24.0 pg (27.0-34.0) L 03/05/22 12:18 MCHC 31.8 g/dL (33.0-35.0) L 03/05/22 12:18 RDW 16.7 % (11.6-16.5) H 03/05/22 12:18 Plt Count 554 X10^3/uL (150.0-450.0) H 03/05/22 12:18 MPV 6.6 fL (7.4-11.0) L 03/05/22 12:18 Neut % (Auto) 59.4 % (42.0-75.0) 03/05/22 12:18 Lymph % (Auto) 28.2 % (21.0-51.0) 03/05/22 12:18 [place] % (Auto) 9.4 % (0.0-13.0) 03/05/22 12:18 Eos % (Auto) 1.7 % (0.9-2.9) 03/05/22 12:18 Baso % (Auto) 1.3 % (0.2-1.0) H 03/05/22 12:18 Neut # (Auto) 8.2 x10^3/uL (2.2-4.8) H 03/05/22 12:18 Lymph # (Auto) 3.9 X10^3/uL (1.3-2.9) H 03/05/22 12:18 [place] # (Auto) 1.3 x10^3/uL (0.3-0.8) H 03/05/22 12:18 Eos # (Auto) 0.2 x10^3/uL (0.0-0.2) 03/05/22 12:18 Baso # (Auto) 0.2 X10^3/uL (0.0-0.1) H 03/05/22 12:18 Absolute Nucleated RBC 0.2 /100WBC 03/05/22 12:18 Sodium 137 mmol/L (136-145) 03/05/22 12:18 Corrected Sodium 139 mmol/L (136-145) 03/05/22 12:18 Potassium 4.0 mmol/L (3.5-5.1) 03/05/22 12:18 Chloride 103 mmol/L (98-107) 03/05/22 12:18 Carbon Dioxide 25.8 mmol/L (21-32) 03/05/22 12:18 BUN 15 mg/dL (7-18) 03/05/22 12:18 Creatinine 1.02 mg/dL (0.70-1.30) 03/05/22 12:18 Est GFR (MDRD) Af Amer > 60 (>60) 03/05/22 12:18 Est GFR (MDRD) Non-Af > 60 (>60) 03/05/22 12:18 Glucose 164 mg/dL (65-99) H 03/05/22 12:18 Lactic Acid 0.9 mmol/L (0.4-2.0) 03/05/22 12:18 Calcium 8.3 mg/dL (8.5-10.1) L 03/05/22 12:18 Corrected Calcium 9.0 mg/dL (8.5-10.1) 03/05/22 12:18 Total Bilirubin 0.30 mg/dL (0.2-1.0) 03/05/22 12:18 AST 18 Units/L (15-37) 03/05/22 12:18 ALT 16 Units/L (12-78) 03/05/22 12:18 Alkaline Phosphatase 72 Units/L (46-116) 03/05/22 12:18 Total Protein 7.1 g/dL (6.4-8.2) 03/05/22 12:18 Albumin 3.1 g/dL (3.4-5.0) L 03/05/22 12:18 Globulin 4.0 g/dL (2.5-4.5) 03/05/22 12:18 Albumin/Globulin Ratio 0.8 Ratio (1.1-2.1) L 03/05/22 12:18 Lipase 75 Units/L (73-393) 03/05/22 12:18 Specimen Type Clean catch urine 03/05/22 13:20 Urine Color Yellow (YELLOW) 03/05/22 13:20 Urine Appearance Clear (CLEAR) 03/05/22 13:20 Urine pH 7.0 (5.0 - 8.0) 03/05/22 13:20 Ur Specific Ariel 1.010 (1.000-1.030) 03/05/22 13:20 Urine Protein Negative (NEGATIVE) 03/05/22 13:20 Urine Glucose (UA) Negative (NEGATIVE) 03/05/22 13:20 Urine Ketones Negative (NEGATIVE) 03/05/22 13:20 Urine Blood Negative (NEGATIVE) 03/05/22 13:20 Urine Nitrite Negative (NEGATIVE) 03/05/22 13:20 Urine Bilirubin Negative (NEGATIVE) 03/05/22 13:20 Urine Urobilinogen Normal (NORMAL) 03/05/22 13:20 Ur Leukocyte Esterase Negative (NEGATIVE) 03/05/22 13:20 Blood Type A POSITIVE 03/05/22 13:13 Antibody Screen Negative 03/05/22 12:18 Crossmatch See Detail 03/05/22 12:18 + anemia XRAY XRAY Interpreted by: Radiologist X-ray Results: CT abd/pelvis without acute abnormalities Opioid Opioid Risk Tool Age (Yazan box if 16-45): No History of Preadolescent Sexual Abuse: No Total: 0 Total Score Risk Category: Low Risk Copyright: [employer] LAWS predicting aberrant behaviors Discharge Plan Diagnosis Discharge Problem: Anemia, Abdominal pain Discharge Plan Patient Disposition: 09 ADMITTED INPATIENT Condition: Stable Prescriptions: No Action aspirin [Aspir-81] 81 mg Tablet,Delayed Release (Dr/Ec) 81 mg PO DAILY losartan-hydrochlorothiazide 100-25 mg tablet 1 tab PO DAILY amlodipine 10 mg tablet 10 mg PO DAILY Humulin R Regular U-100 Insuln 100 unit/mL solution 5 unit subcut DIRECTED Qty: 0 0RF Basaglar KwikPen U-100 Insulin 100 unit/mL (3 mL) Insulin Pen 15 unit SUBCUT DAILY Qty: 0 0RF Health Concerns: Post Hospitalization: new medications and changes needed to prevent readmission or further decline. Pt educated and given instructions on all concerns. Plan of Treatment: Continue with present treatment and follow up plan. Pt is to keep follow up appointment as instructed and take medications as ordered. Orders to Discharge Patient Discharge Orders: Transfer (Routine); Ordered 03/05/22 Ordered By: Shayne Caballero Follow ups/Referrals Follow ups/Referrals: BRODY BYERS [Primary Care Provider] - 3 days
[2022-03-05] MEDS ORDERED: ZOFRAN INJ 4 MG VIAL IVP ONE (12:13)
[2022-03-05] MEDS ORDERED: MORPHINE SULFATE INJ 4 MG IVP ONE (12:13)
[2022-03-05] MEDS ORDERED: NS 1,000 ML IV 1,000 ML IV ONE (12:13)
[2022-03-05] MEDS ORDERED: ZOFRAN INJ 4 MG VIAL ONE (12:19)
[2022-03-05] MEDS ORDERED: NS 1,000 ML IV 1,000 ML ONE (12:19)
[2022-03-05] MEDS ORDERED: MORPHINE SULFATE INJ 4 MG ONE (12:19)
[2022-03-05 12:36] LABS: BASOPHILS # (AUTO) 0.2 X10^3/uL (0.0-0.1); EOSINOPHILS # (AUTO) 0.2 x10^3/uL (0.0-0.2); NEUTROPHILS # (AUTO) 8.2 x10^3/uL (2.2-4.8)
[2022-03-05 12:40] LABS: BASOPHILS % (AUTO) 1.3 % (0.2-1.0); EOSINOPHILS % (AUTO) 1.7 % (0.9-2.9); HEMATOCRIT 21.6 % (42.0-54.0); LYMPHOCYTES # (AUTO) 3.9 X10^3/uL (1.3-2.9); LYMPHOCYTES % (AUTO) 28.2 % (21.0-51.0); MEAN CORPUSCULAR HGB CONC 31.8 g/dL (33.0-35.0); MEAN CORPUSCULAR VOLUME 75.4 fL (80.0-100.0); MEAN PLATELET VOLUME 6.6 fL (7.4-11.0); MONOCYTES # (AUTO) 1.3 x10^3/uL (0.3-0.8); MONOCYTES % (AUTO) 9.4 % (0.0-13.0); NEUTROPHILS % (AUTO) 59.4 % (42.0-75.0); RED BLOOD COUNT 2.87 X10^6/uL (4.7-6.0); RED CELL DISTRIBUTION WIDTH 16.7 % (11.6-16.5); WHITE BLOOD COUNT 13.7 X10^3/uL (3.6-10.0)
[2022-03-05 12:41] LABS: HEMOGLOBIN 6.9 g/dL (13.5-18.0)
[2022-03-05 12:46] LABS: ALANINE AMINOTRANSFERASE 16 Units/L (12-78); ALBUMIN 3.1 g/dL (3.4-5.0); ALKALINE PHOSPHATASE 72 Units/L (46-116); ASPARTATE AMINO TRANSFERASE 18 Units/L (15-37); BLOOD UREA NITROGEN 15 mg/dL (7-18); CALCIUM 8.3 mg/dL (8.5-10.1); CARBON DIOXIDE 25.8 mmol/L (21-32); CHLORIDE 103 mmol/L (98-107); COR NA(FOR HYPERGLY) 139 mmol/L (136-145); CREATININE 1.02 mg/dL (0.70-1.30); LIPASE 75 Units/L (73-393); SODIUM 137 mmol/L (136-145); TOTAL PROTEIN 7.1 g/dL (6.4-8.2); eGFR NON BLACK RACES > 60 (>60)
--- NOTE | 2022-03-05 12:50 | RAD ---
HISTORYlow hemoglobin, pain, hx colon caSTUDYCHEST, 1 VIEWCOMPARISONNoneFINDINGSThe lungs are clear. No pneumothorax or significant effusion.Heart size is normal.Bones are unremarkable.Left subclavian MediPort central venous catheter is in the expected location of the superior vena cava. Fixation hardware is present in the cervical spine.IMPRESSION1. No significant abnormalityElectronically signed by: Layo Mccabe (Mar 05, 2022 12:48:46)
[2022-03-05 12:55] LABS: LACTIC ACID 0.9 mmol/L (0.4-2.0)
[2022-03-05 13:29] LABS: BILIRUBIN,URINE NEGATIVE (NEGATIVE); BLOOD/HEMOGLOBIN,URINE NEGATIVE (NEGATIVE); GLUCOSE, URINE NEGATIVE (NEGATIVE); KETONES,URINE NEGATIVE (NEGATIVE); LEUKOCYTE ESTERASE ,URINE NEGATIVE (NEGATIVE); NITRITES,URINE NEGATIVE (NEGATIVE); PROTEIN,URINE NEGATIVE (NEGATIVE); UROBILINOGEN,URINE NORMAL (NORMAL)
[2022-03-05 13:31] LABS: APPEARANCE,URINE CLEAR (CLEAR); COLOR,URINE YELLOW (YELLOW)
[2022-03-05] MEDS ORDERED: DILTIAZEM 125mg/125mL-0.7%NACL 125 MG/125 ML PLAST..BAG IV PRN (15:05)
[2022-03-05] MEDS ORDERED: CARDIZEM INJ 50 MG VIAL IVP ONE (15:05)
--- NOTE | 2022-03-05 15:17 | CT ---
HISTORYABD PAIN, ANEMIA, H/O APPENDECIAL CANCER[Abdominal pain.]STUDY[CT Abdomen and Pelvis w/ Contrast]COMPARISONAbdominopelvic CT examination dated December 29, 2018.TECHNIQUEMultiple axial images of the abdomen and pelvis were obtained from the lung bases to the pubic symphysis following the administration of IV contrast. Dose reduction techniques including Automated Exposure Control (AEC) and adjustment of mA and kV were utilized.FINDINGSThe lung bases are clear. The heart is normal in size without a pericardial effusion. The liver, gallbladder, pancreas, stomach, adrenal glands, and kidneys are unremarkable appearance. Postsurgical changes are seen in the LUQ from a splenectomy with postsurgical changes in the mid abdomen and right lower quadrant also seen from appendiceal removal. There is no evidence for pathologic abdominopelvic or retroperitoneal adenopathy. No evidence for carcinomatosis or malignant ascites is seen. The bladder and remaining pelvic organs are unremarkable appearance. There is a large quantity of colonic stool observed, diffusely. No other acute abdominopelvic process is identified on this examination. The remaining abdominopelvic organs [are unremarkable in appearance]. [No free air is observed]. [No free pelvic fluid collection is seen]. [No acute mesenteric inflammatory stranding is appreciated]. The bony structures [are grossly unremarkable]. No other abnormalities seen.IMPRESSIONPostsurgical changes in the abdomen/pelvis, as discussed above, without evidence for metastatic disease or other acute acute abnormalities.Electronically signed by: SEN WILBURN III (Mar 05, 2022 15:16:27)
[2022-03-05] MEDS ORDERED: DILAUDID INJ IVP ONE (15:20)
[2022-03-05] MEDS ORDERED: DILAUDID INJ ONE (15:22)
[2022-03-05] MEDS: D5 1/2 NS 1,000 ML 1,000 ML IV SCH (18:28)
[2022-03-05] MEDS ORDERED: BENADRYL INJ 50 MG VIAL IVP ONE (19:46)
[2022-03-05] MEDS ORDERED: TYLENOL 325 MG TAB PO ONE (19:47)
[2022-03-05] MEDS ORDERED: NS 250 ML IV 250 ML IV ONE ×2 (19:51→20:22)
[2022-03-05] MEDS: GOLYTELY or GAVILYTE or Equivalent PO SCH (20:16)
--- NOTE | 2022-03-05 21:39 | EKG ---
Test Reason : preop clearance Blood Pressure : */* mmHG Vent. Rate : 77 BPM Atrial Rate : 77 BPM P-R Int : 132 ms QRS Dur : 126 ms QT Int : 398 ms P-R-T Axes : -29 -24 26 degrees QTc Int : 450 ms Normal sinus rhythm Right bundle branch block Septal infarct , age undetermined Lateral infarct , age undetermined Abnormal ECG No previous ECGs available Confirmed by Sandor Suarez ([id number]) on 03/08/2022 9:22:18 AM Referred By: Confirmed By: Sandor Suarez
[2022-03-05] MEDS: ZOFRAN INJ 4 MG VIAL IVP PRN (22:52)
[2022-03-05] MEDS: DILAUDID INJ IVP PRN (22:52)
[2022-03-06] MEDS: DILAUDID INJ IVP PRN ×3 (02:51→23:42)
[2022-03-06 03:48] LABS: BASOPHILS # (AUTO) 0.1 X10^3/uL (0.0-0.1); BASOPHILS % (AUTO) 0.6 % (0.2-1.0); EOSINOPHILS # (AUTO) 0.2 x10^3/uL (0.0-0.2); EOSINOPHILS % (AUTO) 1.5 % (0.9-2.9); HEMOGLOBIN 8.7 g/dL (13.5-18.0); LYMPHOCYTES # (AUTO) 3.3 X10^3/uL (1.3-2.9); MEAN CORPUSCULAR HEMOGLOBIN 24.8 pg (27.0-34.0); MEAN CORPUSCULAR HGB CONC 32.3 g/dL (33.0-35.0); MEAN CORPUSCULAR VOLUME 76.9 fL (80.0-100.0); MEAN PLATELET VOLUME 6.4 fL (7.4-11.0); MONOCYTES # (AUTO) 1.2 x10^3/uL (0.3-0.8); MONOCYTES % (AUTO) 8.4 % (0.0-13.0); NEUTROPHILS # (AUTO) 9.1 x10^3/uL (2.2-4.8); NEUTROPHILS % (AUTO) 65.5 % (42.0-75.0); RED BLOOD COUNT 3.52 X10^6/uL (4.7-6.0); RED CELL DISTRIBUTION WIDTH 16.8 % (11.6-16.5); WHITE BLOOD COUNT 13.9 X10^3/uL (3.6-10.0)
[2022-03-06 04:18] LABS: ALANINE AMINOTRANSFERASE 13 Units/L (12-78); ALKALINE PHOSPHATASE 73 Units/L (46-116); ASPARTATE AMINO TRANSFERASE 15 Units/L (15-37); BLOOD UREA NITROGEN 13 mg/dL (7-18); CALCIUM 8.1 mg/dL (8.5-10.1); CARBON DIOXIDE 27.2 mmol/L (21-32); CHLORIDE 102 mmol/L (98-107); COR CA(FOR HYPOALB) 8.9 mg/dL (8.5-10.1); COR NA(FOR HYPERGLY) 139 mmol/L (136-145); SODIUM 137 mmol/L (136-145); TOTAL PROTEIN 6.9 g/dL (6.4-8.2); eGFR NON BLACK RACES > 60 (>60)
[2022-03-06] MEDS: ZOFRAN INJ 4 MG VIAL IVP PRN ×3 (06:18→23:40)
[2022-03-06] MEDS: D5 1/2 NS 1,000 ML 1,000 ML IV SCH ×3 (07:16→16:48)
[2022-03-06] MEDS: PEPCID 20 MG VIAL 20 MG in NS 50 ML IV 50 ML IV SCH ×2 (10:08→20:57)
[2022-03-06] MEDS: PROTONIX INJ 40 MG VIAL IVP SCH ×2 (10:08→20:57)
--- NOTE | 2022-03-06 10:15 | DR.H&P ---
H&P - History & Physical for Day of: H&P Date: 03/05/22 - Chief Complaint Chief Complaint: fatigue, abdominal pain, anemia - History of Present Illness History of Present Illness: IS A 66 YEAR OLD PATIENT OF DR.RANDALL RUTHERFORD. HE PRESENTED TO THE ER WITH COMPLAINTS OF FATIGUE AND DIFFUSE ABDOMINAL PAIN X 3-4 HOURS. PATIENT DESCRIBES PAIN SHARP, DIFFUSE, AND DOES NOT RADIATE. PAIN IS WORSE WITH PALPATION. HE RATES PAIN A 6/10. HE DENIES FEVER, URI SYMPTOMS, OR VOMITING. HE DOES ADMIT TO SLIGHT NAUSEA. HE DENIES SEEING BLOOD IN STOOL. HE HAS A PMH OF COLON CANCER. HE HAS HAD A RESECTION AND HAS UNDERWENT CHEMOTHERAPY. HE HAD OUTPATIENT LABS DONE AT HIS PCP OFFICE YESTERDAY. HIS HEMOGLOBIN WAS NOTED TO BE IN THE 7s. ON ARRIVAL TO THE HOSPITAL TODAY, VITALS WERE: 99.0-87-20-99%-143/69. LABS WERE OBTAINED. WBC 13.7, RBC 2.87, HGB 6.9, HCT 21.6, PLT COUNT 554, SODIUM 137, POTASSIUM 4.0, CHLORIDE 103, BUN 15, CREATININE 1.02, GLUCOSE 164, CALCIUM 8.3, AST 18, ALT 16, ALK PHOS 72, TOTAL PROTEIN 7.1, ALBUMIN 3.1. URINALYSIS WAS OBTAINED AND WAS UNREMARKABLE. STOOL WAS POSITIVE FOR OCCULT BLOOD. A CHEST XRAY WAS OBTAINED AND REVEALED: The lungs are clear. No pneumothorax or significant effusion. Heart size is normal. Bones are unremarkable. Left subclavian MediPort central venous catheter is in the expected location of the superior vena cava. Fixation hardware is present in the cervical spine. AN ABDOMEN/PELVIS CT WAS OBTAINED AND REVEALED: The lung bases are clear. The heart is normal in size without a pericardial effusion. The liver, gallbladder, pancreas, stomach, adrenal glands, and kidneys are unremark able appearance. Postsurgical changes are seen in the LUQ from a splenectomy with postsurgical changes in the mid abdomen and right lower quadrant also seen from appendiceal removal. There is no evidence for pathologic abdominopelvic or retroperitoneal adenopathy. No evidence for carcinomatosis or malignant ascites is seen. The bladder and remaining pelvic organs are unremarkable appearance. There is a large quantity of colonic stool observed, diffusely. No other acute abdominopelvic process is identified on this examination. The remaining abdominopelvic organs [are unremarkable in appearance]. [No free air is observed]. [No free pelvic fluid collection is seen]. [No acute mesenteric inflammatory stranding is appreciated]. The bony structures [are grossly unremarkable]. No other abnormalities seen. EKG REVEALED NORMAL SINUS RHYTHM WITH HR 77 BPM. IN THE ER, SHE WAS GIVEN A NORMAL SALINE BOLUS, MORPHINE 4MG IV X 1 DOSE, ZOFRAN 4MG IV X 1 DOSE, AND DILAUDID 1MG IV X 1 DOSE. WE ADMITTED Shahana IQBAL TO THE HOSPITAL FOR FURTHER EVALUATION AND TREATMENT OF ANEMIA AND ABDOMINAL PAIN. WE WILL START D51/2 NORMAL SALINE AT 125 ML/HR, DILAUDID 1MG IV H Q4PRN, ZOFRAN 4MG IV Q4H PRN, PEPCID 40MG IV BID, PROTONIX 40MG IV BID. WE WILL CONSULT FOR POSSIBLE ENDOSCOPY. WE WILL TRANSFUSE 2 UNITS OF PACKED RED BLOOD CELLS. OTHERWISE, WE WILL FOLLOW-UP WITH AM LABS AND CONTINUE TO MONITOR. TIME SPENT ON CLINICAL ASSESSMENT, REVIEWING LABS AND IMAGING, DECISION MAKING, AND DOCUMENTATION GREATER THAN 75 MINUTES. - Past Medical History Past Medical History: Hypertension, Diabetes - Past Surgical History Surgical History: Appendectomy, Bowel Resection, Spleenectomy - Family History Family Medical History: Diabetes Mellitus, Heart Failure - Social History Does patient currently use any type of tobacco product: No Have you used tobacco products in the last 12 months: No Type of Tobacco Use: None Does any household member use tobacco: No Alcohol Use: None Drug Use: None - Medications Home Medications: Sulfa (Sulfonamide Antibiotics) [SULFA] Allergy (Verified 06/16/17 12:48) CONTINUE taking the following medications insulin glargine 100 unit/mL (3 mL) subcutaneous pen (Lantus Solostar U-100 Insulin) 20 unit subcut BID 03/05/22 [History] insulin regular human 100 unit/mL injection solution cartridge See Rx Instructions .Route .COMPLEX 03/05/22 [History] - Review of Systems Constitutional: Weakness Eyes: No Symptoms Reported ENT: No Symptoms Reported Respiratory: No Symptoms Reported Cardiovascular: No Symptoms Reported Gastrointestinal: Nausea. denies: Abdominal Pain, Diarrhea Genitourinary: No Symptoms Reported Musculoskeletal: No Symptoms Reported Skin: No Symptoms Reported Neurological: Weakness - Physical Exam Vital Signs: Temperature 98.7 F Pulse Rate [Left Radial] 73 Pulse Rate 87 Respiratory Rate 20 Blood Pressure [Left Arm] 136/65 Blood Pressure 143/69 O2 Sat by Pulse Oximetry 100 Oriented: Normal Eyes: Normal Ear: Normal Nose: Normal Throat: Normal Respiratory: Clear Throughout Cardiovascular: Normal : Normal Auscultation: Bowel Sounds: Normal Palpation: Normal Tenderness: Diffuse, Mild Skin: Normal Musculoskeletal: Normal Psychiatric: Normal Mood Description: Calm Affect: Normal Speech Pattern: Clear - Assessment/Plan (1) Anemia Qualifiers: Anemia type: iron deficiency Iron deficiency anemia type: unspecified iron deficiency Qualified Code(s): D50.9 - Iron deficiency anemia, unspecified Status: Acute (2) Abdominal pain Qualifiers: Abdominal location: generalized Qualified Code(s): R10.84 - Generalized abdominal pain Status: Acute (3) Benign essential HTN Status: Chronic (4) Type 1 diabetes Qualifiers: Diabetes mellitus complication status: with hyperglycemia Qualified Code(s): E10.65 - Type 1 diabetes mellitus with hyperglycemia Status: Chronic - Allergies Allergies/Adverse Reactions: Allergies Allergy/AdvReac Type Severity Reaction Status Date / Time Sulfa (Sulfonamide Allergy Verified 06/16/17 12:48 Antibiotics) [SULFA]
[2022-03-06] MEDS ORDERED: DIPRIVAN VIAL 20 ML ONE ×2 (11:07→11:32)
[2022-03-06] MEDS ORDERED: XYLOCAINE 2 % (PLAIN) ONE (11:07)
[2022-03-06] MEDS ORDERED: NS 1,000 ML IV 1,000 ML ONE ×2 (11:11→23:06)
[2022-03-06] MEDS ORDERED: EPHEDRINE SULFATE INJ ONE (11:34)
[2022-03-06] MEDS: NS 1,000 ML IV 1,000 ML IV SCH (23:19)
[2022-03-07] MEDS: GOLYTELY or GAVILYTE or Equivalent PO SCH (01:17)
[2022-03-07 06:45] LABS: BASOPHILS # (AUTO) 0.1 X10^3/uL (0.0-0.1); EOSINOPHILS # (AUTO) 0.3 x10^3/uL (0.0-0.2); EOSINOPHILS % (AUTO) 3.1 % (0.9-2.9); HEMATOCRIT 25.4 % (42.0-54.0); HEMOGLOBIN 8.4 g/dL (13.5-18.0); LYMPHOCYTES # (AUTO) 3.5 X10^3/uL (1.3-2.9); LYMPHOCYTES % (AUTO) 34.4 % (21.0-51.0); MEAN CORPUSCULAR HEMOGLOBIN 25.4 pg (27.0-34.0); MONOCYTES # (AUTO) 1.1 x10^3/uL (0.3-0.8); MONOCYTES % (AUTO) 11.1 % (0.0-13.0); NEUTROPHILS # (AUTO) 5.1 x10^3/uL (2.2-4.8); NEUTROPHILS % (AUTO) 50.4 % (42.0-75.0); RED CELL DISTRIBUTION WIDTH 16.9 % (11.6-16.5); WHITE BLOOD COUNT 10.2 X10^3/uL (3.6-10.0)
[2022-03-07 07:01] LABS: ALANINE AMINOTRANSFERASE 11 Units/L (12-78); ALBUMIN 2.8 g/dL (3.4-5.0); ALKALINE PHOSPHATASE 68 Units/L (46-116); ASPARTATE AMINO TRANSFERASE 14 Units/L (15-37); BLOOD UREA NITROGEN 9 mg/dL (7-18); CALCIUM 7.9 mg/dL (8.5-10.1); CARBON DIOXIDE 24.2 mmol/L (21-32); CHLORIDE 104 mmol/L (98-107); COR CA(FOR HYPOALB) 8.9 mg/dL (8.5-10.1); COR NA(FOR HYPERGLY) 139 mmol/L (136-145); CREATININE 0.97 mg/dL (0.70-1.30); SODIUM 138 mmol/L (136-145); TOTAL PROTEIN 6.8 g/dL (6.4-8.2); eGFR NON BLACK RACES > 60 (>60)
[2022-03-07] MEDS: DILAUDID INJ IVP PRN (07:26)
[2022-03-07] MEDS: NS 1,000 ML IV 1,000 ML IV SCH (07:27)
[2022-03-07] MEDS: ZOFRAN INJ 4 MG VIAL IVP PRN (07:27)
[2022-03-07] MEDS: PEPCID 20 MG VIAL 20 MG in NS 50 ML IV 50 ML IV SCH (08:26)
[2022-03-07] MEDS: PROTONIX INJ 40 MG VIAL IVP SCH (08:27)
[2022-03-07] MEDS ORDERED: NS 100 ML IV 100 ML with VENOFER 400 MG IV NR ×2 (11:34)
[2022-03-07 12:27] VITALS: BP 140/67
== END 2022-03-07 14:46 | disposition home or self-care (01) ==
LOC: ER 11:37 → MED/SURG 11:37
PROVIDERS: ADMIT Internal Medicine; ATTEND Internal Medicine
DX: Z85.038 Personal history of other malignant neoplasm of large intestine; D50.8 Other iron deficiency anemias; Z90.49 Acquired absence of other specified parts of digestive tract; K92.1 Melena; K64.2 Third degree hemorrhoids; R53.81 Other malaise; I10 Essential (primary) hypertension; E10.65 Type 1 diabetes mellitus with hyperglycemia; R10.84 Generalized abdominal pain; K64.1 Second degree hemorrhoids